=== PATIENT | female | born 1995 | race Caucasian/White ===

== ENCOUNTER 2021-12-26 16:54 | Inpatient (IN) | payer BC ==
[2021-12-26] MEDS: miSOPROStoL 25 MCG TAB VAGINAL PRN ×3 (17:46→23:45)
[2021-12-26] MEDS ORDERED: BUTORPHANOL 1 MG/ML 1 ML VIAL IV PRN (17:55)
[2021-12-26] MEDS ORDERED: ZOLPIDEM 10 MG TAB PO PRN (17:56)
--- NOTE | 2021-12-26 17:58 | P.HPOB ---
History of Present Illness H&P Date: 12/26/21 Chief Complaint: Here for Cytotec induction, unfavorable cervix This is a 26-year-old white female 1 para 0 EDC 12/22/2021 at 40-4/7 weeks' gestation. Patient was scheduled for induction tomorrow for postdates, however her cervix was quite unfavorable. After discussion we had elected to proceed with Cytotec induction tonight. Fetus is been active throughout the . Reactive NST in the office. Patient is having spontaneous cramping of mild intensity. Past medical history is essentially unremarkable. Past surgical history is negative. Current medications Zofran 4 mg as needed, vitamin daily, baby aspirin daily. ALLERGIES none known Family history cervical cancer in her aunt. Social history patient is , she has never been a smoker, she denies alcohol or drug use. history is significant for negative group B strep cultures, blood type O negative, rubella status immune. VDRL testing, hepatitis B surface antigen, urine culture, VDRL testing, Pap smear, gonorrhea and and chlamydia cultures all negative. One-hour Glucola elevated, 3 hour GTT within normal limits. On exam patient is 5 foot 4 inches, 238 pounds, blood pressure 130/84 and admission. Vital signs are stable and she is afebrile. General physical exam is within normal limits. Extremities reveal no edema. heart rate is consistent with reactive NST. Cervix is posterior, 60% effaced, moderate to firm, -2 station, 1 cm dilated, vertex presentation. Cytotec 25 MCG's is placed high in the vagina posterior to the cervix. Impression: 40-4/7 weeks intrauterine , here for induction of labor, all signs reassuring. Plan: Cytotec repeat at 2044 hrs., third dose to be determined. Analgesic options reviewed. Close maternal and surveillance. Clear liquids at this time, nothing by mouth after midnight. Begin Pitocin at 0600 hrs. tomorrow morning and less active labor ensues. All questions answered. Review of Systems Constitutional: Reports as per [facility] Medications and Allergies Home Medications Medication Instructions Recorded Confirmed Type Aspirin [[place]az[place]] 81 mg PO DAILY 12/26/21 12/26/21 History Ondansetron [Zofran ODT] 1 tab PO DAILY PRN 12/26/21 12/26/21 History Pnv,Calcium 72/Iron/Folic Acid 1 tab PO DAILY 12/26/21 12/26/21 History [ Plus Tablet] Allergies Allergy/AdvReac Type Severity Reaction Status Date / Time No Known Allergies Allergy Verified 12/26/21 17:08 Exam Intake and Output 12/26/21 12/26/21 12/26/21 06:59 14:59 22:59 Other: Weight 107.955 kg See dictation under HPI please Assessment and Plan Assessment: 40-4/7 weeks intrauterine , here for induction of labor with unfavorable cervix, Cytotec first dose placed. All signs reassuring. Plan: Repeat Cytotec in 3 hours. Close maternal and surveillance. Analgesic options reviewed. Clear liquids at this time, nothing by mouth after midnight. Pitocin at 0600 hrs. unless active labor tonight. Time with Patient: Less than 30
[2021-12-26 18:40] LABS: Basophils % (A) 0 %; Eosinophils # (A) 0.1 k/uL (0-0.7); Eosinophils % (A) 1 %; HCT 40.6 % (34.0-46.0); HGB 13.3 gm/dL (11.4-16.0); Lymphocytes % (A) 19 %; MCH 28.4 pg (25.0-35.0); MCHC 32.7 g/dL (31.0-37.0); MCV 86.8 fL (80.0-100.0); Mean Platelet Volume 12.8; Monocytes # (A) 0.6 k/uL (0-1.0); Monocytes % (A) 6 %; Neutrophils % (A) 73 %; Platelet Count 164 k/uL (150-450); RBC 4.67 m/uL (3.80-5.40); RDW 14.3 % (11.5-15.5); WBC 10.9 k/uL (3.8-10.6)
[2021-12-26 19:30] LABS: Large Platelets Present
[2021-12-26] MEDS ORDERED: ZOLPIDEM 5 MG TAB PO PRN (20:52)
[2021-12-26 22:12] LABS: Uric Acid 5.5 mg/dL (3.7-7.4)
[2021-12-27] MEDS ORDERED: OXYTOCIN 10 UNIT/ML 1 ML VIAL IM PRN (05:02)
[2021-12-27] MEDS ORDERED: METHYLERGONOVINE 0.2 MG/ML 1 ML AMP IM PRN (05:02)
[2021-12-27] MEDS ORDERED: LIDOCAINE 1% (PF) 10 MG/ML (30 ML SDV) SQ PRN (05:02)
[2021-12-27] MEDS ORDERED: CARBOPROST TROMETHAMINE 250 MCG/ML 1 ML AMP IM PRN (05:02)
[2021-12-27] MEDS ORDERED: TERBUTALINE 1 MG/ML VIAL SQ PRN (05:02)
[2021-12-27] MEDS ORDERED: OXYTOCIN 30 UNITS/500 ML NS 30 UNIT in SALINE 1 500ML.BAG IV SCH (05:15)
[2021-12-27] MEDS: LACTATED RINGERS 1,000 ML IV SCH ×4 (05:47→22:09)
[2021-12-27] MEDS ORDERED: ONDANSETRON 4 MG/2 ML VIAL IVP PRN ×2 (07:46→13:14)
[2021-12-27] MEDS ORDERED: OXYTOCIN 30 UNITS/500 ML NS BAG IV ONE (12:10)
[2021-12-27] MEDS ORDERED: KETOROLAC 15 MG/ML 1 ML VIAL ONE (12:10)
[2021-12-27] MEDS ORDERED: ONDANSETRON 4 MG/2 ML VIAL ONE (12:10)
[2021-12-27] MEDS ORDERED: MORPHINE SULFATE (PF) 0.3 MG/0.3 ML SYR ONE (12:10)
[2021-12-27] MEDS ORDERED: ROPIVACAINE 100 MG, fentaNYL (PF). 200 MCG in SODIUM CHLORIDE 0.9% 76 ML EPIDURAL ONE (12:51)
[2021-12-27] MEDS ORDERED: diphenhydrAMINE 50 MG CAP PO PRN (13:14)
[2021-12-27] MEDS ORDERED: LANOLIN CREAM 5 GM TUBE TOPICAL PRN (13:14)
[2021-12-27] MEDS ORDERED: METOCLOPRAMIDE 5 MG/ML 2 ML VIAL IVP PRN (13:14)
[2021-12-27] MEDS ORDERED: SIMETHICONE 80 MG CHEWABLE PO PRN (13:14)
[2021-12-27] MEDS ORDERED: NALOXONE 0.4 MG/ML 1 ML VIAL IV PRN (13:14)
[2021-12-27] MEDS ORDERED: diphenhydrAMINE 50 MG/ML 1 ML VIAL IVP PRN ×2 (13:14)
[2021-12-27] MEDS ORDERED: diphenhydrAMINE 25 MG CAP PO PRN (13:14)
[2021-12-27] MEDS ORDERED: ZOLPIDEM 5 MG TAB PO PRN (13:14)
--- NOTE | 2021-12-27 13:14 | P.OP ---
Date of Procedure: 12/27/21 Preoperative Diagnosis: 40-5/7 weeks, arrest of dilatation, nonreassuring heart tones. Postoperative Diagnosis: Same, normal-appearing tubes and ovaries, liveborn male , 7 lbs. 15 oz., 3600 g, ROT Procedure(s) Performed: Primary low transverse section Anesthesia: epidural Surgeon: Nida Cervantes Manager Investment #1: Stefany Poole Estimated Blood Loss (ml): 400 IV fluids (ml): 600 Urine output (ml): 400 Pathology: other (Placenta) Operative Findings: Liveborn male infant, right occiput transverse position. Normal-appearing tubes and ovaries bilaterally. Description of Procedure: Patient presented last night for Cytotec induction. She received 3 doses and did well. Artificial amniorrhexis this morning revealed clear. Oxytocin was started and titrated per hospital protocol. Patient be 5 cm dilated and had arrest of dilation for proximal 2 hours. In addition, nonreassuring heart tones were present. The decision was made to proceed with primary low transverse section. Antibiotics are given. Bicitra given. Patient was brought back to the operating room. Vaginal prep performed. Abdomen prepped and draped in usual sterile fashion. Castro catheter placed. The appropriate timeout is performed to assure proper patient and procedural identification. The analgesia is checked and noted to be adequate. A low transverse skin incision is made in this is carried down through the subcutaneous tissue which is approximately 5 cm deep. Fascia is isolated, scored, extended bilaterally with curved Ulloa scissors. Peritoneum is next identified and incised, there is no bowel or bladd er involvement. At all times the bladder is Well from the operative field to avoid bladder and/or ureteral injury. A low transverse uterine incision is made in this is extended with blunt dissection. Infant's head is delivered in the right occiput transverse position. Patient is officially delivered of a liveborn male infant at 1227 hrs. Umbilical cord is doubly clamped and ligated, he is handed to waiting nurses for evaluation where scores of 45 and 8 at one and 5 and 10 minutes respectively are given. Cord blood is sent to the lab for Rh- status. The placenta is delivered manually, it is inspected and noted to be intact with trivascular cord at 1228 hrs. Uterus is then externalized and massaged. It is swept clean with a sterile sponge to avoid any retained products of conception. Bilateral tubes and ovaries appear normal to inspection. Uterus is closed in a two-step fashion, first layer running locking, second layer imbricated. Excellent hemostasis is noted. The abdomen is suctioned with U to the uterus and the uterus is gently placed back into the abdominal cavity. Bilateral gutters are inspected and cleaned. Hemostasis again is excellent. Peritoneum is allowed to close by secondary intention. Fascia is closed in a running locking stitch of 0 Vicryl with over ligation in the midline. Subcutaneous tissue is irrigated, clean and dry. It is reapproximated with 3-0 Vicryl in a running stitch. 4-0 undyed Monocryl is used for final skin closure. Steri- Strips and Mastisol are applied to the wound. All sponge needle and enhancement counts are correct. Castro is noted to be draining clear urine. Infant weighs 7 lbs. 15 oz. or 3600 g. Patient is requesting circumcision for her son.
[2021-12-27] MEDS: ACETAMINOPHEN TAB 500 MG TAB PO SCH ×2 (13:53→20:25)
[2021-12-27] MEDS: IBUPROFEN 600 MG TAB PO SCH (18:10)
[2021-12-27] MEDS ORDERED: HYDROmorphone 1 MG/ML 1 ML SYRINGE IVP PRN (18:32)
[2021-12-27] MEDS: SENNOSIDES-DOCUSATE SODIUM 1 EACH TAB PO SCH (20:26)
[2021-12-27 21:59] VITALS: RESP 16
[2021-12-28] MEDS: IBUPROFEN 600 MG TAB PO SCH ×4 (00:25→19:51)
[2021-12-28] MEDS ORDERED: Rhogam IMMUNE GLOBULIN 1,500 UNIT/1 ML IM ONE (05:33)
[2021-12-28] MEDS: ACETAMINOPHEN TAB 500 MG TAB PO SCH ×3 (05:37→23:39)
--- NOTE | 2021-12-28 07:03 | P.PN ---
Subjective Progress Note Date: 12/28/21 Principal diagnosis: Doing well postoperative day #1 Slept well. Positive flatus. Urinating freely. Minimal pain. Objective - Vital Signs Vital signs: Vital Signs Temp 97.9 F 12/28/21 04:00 Pulse 76 12/28/21 04:00 Resp 16 12/28/21 04:00 BP 121/71 12/28/21 04:00 Pulse Ox 100 12/27/21 15:10 Intake & Output 12/27/21 12/28/21 12/28/21 18:59 06:59 18:59 Intake Total 2214.467 Output Total 1375 1600 Balance 839.467 -1600 Intake: IV 1800 Intake, IV Titration 14.467 Amount Oxytocin 30 Units/500 ml 14.467 Ns 30 unit In Saline 1 500ml.bag @ Per Protocol IV .Q0M [facility] Rx#:[id number] Blood Product 400 Output: Urine 650 1600 Uretheral (Castro) 800 Output, Quantitative 725 Blood Loss Other: Voiding Method Indwelling Catheter - Constitutional General appearance: Present: average body habitus, cooperative - EENT Eyes: Present: PERRLA ENT: Present: hearing grossly normal - Respiratory Respiratory: bilateral: CTA - Cardiovascular Rhythm: regular - Gastrointestinal Gastrointestinal Comment(s): Incision clean and dry, intact, Steri-Strips applied. Fundus firm, midline, symmetric, 18 week size General gastrointestinal: Present: normal bowel sounds - Integumentary Integumentary: Present: normal - Neurologic Neurologic: Present: CNII-XII intact - Musculoskeletal Musculoskeletal: Present: gait normal, strength equal bilaterally - Psychiatric Psychiatric: Present: A&O x's 3, appropriate affect, intact judgment & insight - Labs CBC & Chem 7: 12/26/21 17:30 Assessment and Plan Assessment: Doing well postoperative day #1 Plan: Continue postoperative care. Advanced diet and activity. Likely discharge home tomorrow. Circumcision now. Time with Patient: Less than 30
--- NOTE | 2021-12-28 07:46 | P.PN ---
Progress Note - Text Progress Note Date: 12/28/21 Ms. Whiteside is a 26 -year-old female had a history of under spinal analg esia with Astramorph 300 g for postop pain. Today patient is comfortable sitting in her bed. Today patient rated her pain level 4 out of 10 in severity. Denied any fever, drowsiness, confusion. Denied any weakness, tingling sensation in her lower extremities. Denied any bowel or bladder problems. Moving all extremities without any difficulty. Able to walk without any difficulties. Vitals: Hemodynamically stable Continue oral pain medication as per primary team.
[2021-12-28] MEDS: SENNOSIDES-DOCUSATE SODIUM 1 EACH TAB PO SCH ×2 (08:04→19:51)
[2021-12-28 08:40] LABS: Basophils % (A) 0 %; Eosinophils # (A) 0.1 k/uL (0-0.7); Eosinophils % (A) 1 %; HCT 34.4 % (34.0-46.0); HGB 11.5 gm/dL (11.4-16.0); Lymphocytes # (A) 1.6 k/uL (1.0-4.8); Lymphocytes % (A) 15 %; MCH 29.7 pg (25.0-35.0); MCHC 33.5 g/dL (31.0-37.0); MCV 88.9 fL (80.0-100.0); Mean Platelet Volume 12.6; Monocytes # (A) 0.4 k/uL (0-1.0); Monocytes % (A) 3 %; Neutrophils # (A) 8.1 k/uL (1.3-7.7); Neutrophils % (A) 80 %; Platelet Count 126 k/uL (150-450); RBC 3.88 m/uL (3.80-5.40); RDW 14.1 % (11.5-15.5); WBC 10.2 k/uL (3.8-10.6)
[2021-12-28 14:02] LABS: Large Platelets Present; RBC Morphology Normal
[2021-12-29] MEDS: IBUPROFEN 600 MG TAB PO SCH ×3 (03:42→11:02)
[2021-12-29] MEDS: ACETAMINOPHEN TAB 500 MG TAB PO SCH ×2 (04:02→05:59)
[2021-12-29 08:52] VITALS: BP 143/85; PULSE 86; TEMP 98.3
[2021-12-29] MEDS: SENNOSIDES-DOCUSATE SODIUM 1 EACH TAB PO SCH (08:53)
== END 2021-12-29 11:55 | disposition home or self-care (01) | DRG 788 ==
LOC: 4FBP 16:54
PROVIDERS: ADMIT Obstetrics & Gynecology; ATTEND Obstetrics & Gynecology
PROC: 10D00Z1 Extraction of Products of Conception, Low, Open Approach (ICD-10-PCS; principal; 2021-12-26)
PROC: 4A0HXCZ Measurement of Products of Conception, Cardiac Rate, External Approach (ICD-10-PCS; 2021-12-26)
PROC: 3E0DXGC Introduction of Other Therapeutic Substance into Mouth and Pharynx, External Approach (ICD-10-PCS; 2021-12-26)
PROC: 3E033VJ Introduction of Other Hormone into Peripheral Vein, Percutaneous Approach (ICD-10-PCS; 2021-12-26)
PROC: 10907ZC Drainage of Amniotic Fluid, Therapeutic from Products of Conception, Via Natural or Artificial Opening (ICD-10-PCS; 2021-12-26)
DX: O76 Abnormality in fetal heart rate and rhythm complicating labor and delivery (principal); O34.43 Maternal care for other abnormalities of cervix, third trimester; O62.0 Primary inadequate contractions; O26.893 Other specified pregnancy related conditions, third trimester; Z67.41 Type O blood, Rh negative; O48.0 Post-term pregnancy; Z3A.40 40 weeks gestation of pregnancy; Z37.0 Single live birth; Z79.82 Long term (current) use of aspirin; Z80.49 Family history of malignant neoplasm of other genital organs
CPT/HCPCS: 84450; 84460; 84550; 85025; 85461; 85730; 86850; 86900; 86901; 88307

== ENCOUNTER 2022-12-31 15:59 | Inpatient (IN) | payer BC ==
[2022-12-31] MEDS ORDERED: SODIUM CHLORIDE 0.9% 1,000 ML IV ONE ×2 (16:14→17:28)
--- NOTE | 2022-12-31 16:15 | ED ---
General Adult HPI - General Chief complaint: Nausea/Vomiting/Diarrhea Stated complaint: Vomiting,7wks Time Seen by Provider: 12/31/22 16:02 Source: patient, EMS, RN notes reviewed, old records reviewed Mode of arrival: EMS Limitations: no limitations - History of Present Illness Initial comments: 27-year-old female presenting for evaluation of vomiting. Patient has been vomiting for about one week and this has escalated over the past 24-48 hours. She is currently approximately 7 weeks . She had a intrauterine confirmed at the car dumper operator helper's office or if she's been taking multiple medications including B6, Phenergan, Zofran and Benadryl. She's been trying multiple strategies with Gatorade and eating crackers. She denies abdominal pain. Additionally she states she's had upper respiratory symptoms with nasal congestion and cough And wheezing. This is also escalated over the past one week. She had been prescribed Singulair and loratadine as an outpatient as well as albuterol. She does have a known history of asthma. - Related Data Home Medications Medication Instructions Recorded Confirmed Vit No.180/Iron/Folic 1 tab PO DAILY 12/26/21 12/31/22 [ Plus Tablet] Albuterol Sulfate [Albuterol 2 puff PO RT-Q4H PRN 12/31/22 12/31/22 Sulfate Hfa] Aspirin 81 mg PO DAILY 12/31/22 12/31/22 Loratadine 10 mg PO DAILY 12/31/22 12/31/22 Montelukast Sodium [Singulair] 10 mg PO DAILY 12/31/22 12/31/22 Ondansetron [Zofran] 4 mg PO Q4H PRN 12/31/22 12/31/22 Promethazine Suppository 25 mg RECTAL Q8H PRN 12/31/22 12/31/22 [Phenergan] Sertraline [Zoloft] 50 mg PO DAILY 12/31/22 12/31/22 Allergies Allergy/AdvReac Type Severity Reaction Status Date / Time No Known Allergies Allergy Verified 12/31/22 17:25 Review of Systems ROS Statement: Those systems with pertinent positive or pertinent negative responses have been documented in the HPI. ROS Other: All systems not noted in ROS Statement are negative. Past Medical History Past Medical History: No Reported History History of Any Multi-Drug Resistant Organisms: None Reported Past Surgical History: No Surgical Hx Reported Past Anesthesia/Blood Transfusion Reactions: No Reported Reaction Past Psychological History: No Psychological Hx Reported Smoking Status: Never smoker Past Alcohol Use History: None Reported Past Drug Use History: None Reported - Past Family History Father Family Medical History: No Reported History General Exam Limitations: no limitations General appearance: alert, in distress (Mild respiratory distress) Eye exam: Present: normal appearance, PERRL ENT exam: Present: mucous membranes dry Neck exam: Present: normal inspection. Absent: tenderness, meningismus Respiratory exam: Present: respiratory distress, wheezes, decreased breath sounds Cardiovascular Exam: Present: normal rhythm, tachycardia GI/Abdominal exam: Absent: distended Extremities exam: Present: normal capillary refill. Absent: calf tenderness Neurological exam: Present: alert, oriented X3, CN II-XII intact. Absent: motor sensory deficit Skin exam: Present: warm, dry, intact, normal color Course Vital Signs 12/31/22 12/31/22 12/31/22 16:08 16:30 16:47 Temperature Pulse Rate 108 H 106 H 103 H Respiratory 20 Rate Blood Pressure 119/70 O2 Sat by Pulse 98 Oximetry 12/31/22 12/31/22 12/31/22 17:24 17:43 17:53 Temperature 99.7 F H Pulse Rate 110 H 110 H 115 H Respiratory 20 Rate Blood Pressure 141/83 O2 Sat by Pulse 100 Oximetry - Reevaluation(s) Reevaluation #1: 12/31/22 19:20 EKG Findings - EKG Comments: EKG Findings:: EKG: Sinus tachycardia limited assessment due to tremor artifact, no ST segment elevation, ventricular rate of 121, MA interval 142, QRS duration 78, QTC 410 - EKG Results: EKG: interpreted by ERMD Medical Decision Making - Medical Decision Making Was pt. sent in by a medical professional or institution (, PA, YOUTH DEVELOPMENT SPECIALIST, urgent care, hospital, or [place] health care facility...) When possible be specific @ -Sent in by primary care physician Did you speak to anyone other than the patient for history (EMS, parent, family, police, friend...)? What history was obtained from this source @ -History is obtained from the patient's father and car dumper operator helper Did you review nursing and triage notes (agree or disagree)? Why? @ -I reviewed and agree with nursing and triage notes Were old charts reviewed (outside hosp., previous admission, EMS record, old EKG, old radiological studies, urgent care reports/EKG's, [place] health care facility records)? Report findings @ -No old charts were reviewed Differential Diagnosis (chest pain, altered mental status, abdominal pain women, abdominal pain men, vaginal bleeding, weakness, fever, dyspnea, syncope, headache, dizziness, GI bleed, back pain, seizure, CVA, palpatations, mental health, musculoskeletal)? @ -Differential Dyspnea: arrhythmia, tamponade, asthma, COPD, pulmonary embolism, pneumonia, pneumothorax, pulmonary effusion, anaphylaxis, diabetic ketoacidosis, flailed chest, pulmonary contusion, diaphragmatic rupture, anemia, neuromuscular, this is not meant to be an all-inclusive list. EKG interpreted by me (3pts min.). @ -As above X-rays interpreted by me (1pt min.). @ -Chest x-ray negative for focal pneumonia, no acute findings, this was reviewed by myself CT interpreted by me (1pt min.). @ -None done U/S interpreted by me (1pt. min.). @ -Ultrasound of the fetus is pending What testing was considered but not performed or refused? (CT, X-rays, U/S, labs)? Why? @ -None What meds were considered but not given or refused? Why? @ -Initially steroids were held due to the increased risk of abnormality in the first trimester. After discussion with patient's father who is a physician, the patient herself, the car dumper operator helper Dr. Cervantes and the tin dipper Dr. Huynh it was agreed upon that steroids would be of benefit and worth any potential risk. Did you discuss the management of the patient with other professionals (professionals i.e. DrCory, PA, YOUTH DEVELOPMENT SPECIALIST, lab, RT, psych nurse, social worker masters, diamond setter, te acher, campus security officer, rn case management)? Give summary @ -Case discussed with Dr. Cervantes who is patient's car dumper operator helper, throughout the care of this patient. Case discussed with the tin dipper Dr. Huynh Was smoking cessation discussed for >3mins.? @ -No Was critical care preformed (if so, how long)? @ -No Were there social determinants of health that impacted care today? How? (Homeles sness, low income, unemployed, alcoholism, drug addiction, transportation, low edu. Level, literacy, decrease access to med. care, care home, rehab)? @ -No Was there de-escalation of care discussed even if they declined (Discuss DNR or withdrawal of care, Hospice)? DNR status @ -No What co-morbidities impacted this encounter? (DM, HTN, Smoking, COPD, CAD, Cancer, CVA, ARF, Chemo, Hep., AIDS, mental health diagnosis, sleep apnea, morbid obesity)? @ -Asthma Was patient admitted / discharged? Hospital course, mention meds given and route, prescriptions, significant lab abnormalities, going to OR and other pertinent info. @ -27-year-old female approximately 7 weeks presenting with chief complaint of vomiting and hyperemesis gravidarum over the past one week and a progressive dyspnea and cough also over the past one week. Patient is in moderate respiratory distress with tachypnea. She is able to maintain her saturations throughout her stay in the emergency department. She has diminished breath sounds and wheezing bilaterally. In addition to vomiting associated with her the she is also expressing and asthma exacerbation. Chest x- ray is performed which is negative for acute cardiopulmonary findings. Her laboratory testing is essentially unremarkable including CBC, CMP, urinalysis and viral panel. She will benefit from continued treatment of nausea vomiting and dehydration as well as treatment of asthma exacerbation. She's placed on nebulized albuterol, nebulized budesonide and IV steroids. She'll be admitted to Dr. Cervantes with Dr. Huynh on consult. Undiagnosed new problem with uncertain prognosis? @ -No Drug Therapy requiring intensive monitoring for toxicity (Heparin, Nitro, Insulin, Cardizem)? @ -No Were any procedures done? @ -No Diagnosis/symptom? @ -Asthma exacerbation, dehydration, hyperemesis gravidarum Acute, or Chronic, or Acute on Chronic? @ -acute Uncomplicated (without systemic symptoms) or Complicated (systemic symptoms)? @ -Complicated Side effects of treatment? @ -No Exacerbation, Progression, or Severe Exacerbation? @ -Asthma exacerbation - Lab Data Result diagrams: 12/31/22 16:20 12/31/22 16:20 Lab Results 12/31/22 12/31/22 12/31/22 Range/Units 16:20 16:20 16:20 WBC 11.1 H (3.8-10.6) k/uL RBC 5.26 (3.80-5.40) m/uL Hgb 15.2 (11.4-16.0) gm/dL Hct 43.8 (34.0-46.0) % MCV 83.3 (80.0-100.0) fL MCH 28.8 (25.0-35.0) pg MCHC 34.6 (31.0-37.0) g/dL RDW 13.0 (11.5-15.5) % Plt Count 197 (150-450) k/uL MPV 10.6 Neutrophils % 71 % Lymphocytes % 19 % Monocytes % 6 % Eosinophils % 2 % Basophils % 0 % Neutrophils # 7.8 H (1.3-7.7) k/uL Lymphocytes # 2.1 (1.0-4.8) k/uL Monocytes # 0.6 (0-1.0) k/uL Eosinophils # 0.2 (0-0.7) k/uL Basophils # 0.0 (0-0.2) k/uL Sodium 139 (137-145) mmol/L Potassium 4.2 (3.5-5.1) mmol/L Chloride 103 (98-107) mmol/L Carbon Dioxide 24 (22-30) mmol/L Anion Gap 12 mmol/L BUN 11 (7-17) mg/dL Creatinine 0.69 (0.52-1.04) mg/dL Est GFR (CKD-EPI)AfAm >90 (>60 ml/min/1.73 sqM) Est GFR (CKD-EPI)NonAf >90 (>60 ml/min/1.73 sqM) Glucose 96 (74-99) mg/dL Plasma Lactic Acid Terrell 1.5 (0.7-2.0) mmol/L Calcium 9.7 (8.4-10.2) mg/dL Magnesium 1.8 (1.6-2.3) mg/dL Total Bilirubin 0.4 (0.2-1.3) mg/dL AST 16 (14-36) U/L ALT 18 (4-34) U/L Alkaline Phosphatase 93 (38-126) U/L Total Protein 7.8 (6.3-8.2) g/dL Albumin 4.8 (3.5-5.0) g/dL Urine Color Urine Appearance (Clear) Urine pH (5.0-8.0) Ur Specific [place] (1.001-1.035) Urine Protein (Negative) Urine Glucose (UA) (Negative) Urine Ketones (Negative) Urine Blood (Negative) Urine Nitrite (Negative) Urine Bilirubin (Negative) Urine Urobilinogen (<2.0) mg/dL Ur Leukocyte Esterase (Negative) Urine RBC (0-5) /hpf Urine WBC (0-5) /hpf Ur Squamous Epith Cells (0-4) /hpf Urine Bacteria (None) /hpf Urine Mucus (None) /hpf Influenza Type A (PCR) (Not Detectd) Influenza Type B (PCR) (Not Detectd) RSV (PCR) (Not Detectd) SARS-CoV-2 (PCR) (Not Detectd) 12/31/22 12/31/22 Range/Units 17:05 17:30 WBC (3.8-10.6) k/uL RBC (3.80-5.40) m/uL Hgb (11.4-16.0) gm/dL Hct (34.0-46.0) % MCV (80.0-100.0) fL MCH (25.0-35.0) pg MCHC (31.0-37.0) g/dL RDW (11.5-15.5) % Plt Count (150-450) k/uL MPV Neutrophils % % Lymphocytes % % Monocytes % % Eosinophils % % Basophils % % Neutrophils # (1.3-7.7) k/uL Lymphocytes # (1.0-4.8) k/uL Monocytes # (0-1.0) k/uL Eosinophils # (0-0.7) k/uL Basophils # (0-0.2) k/uL Sodium (137-145) mmol/L Potassium (3.5-5.1) mmol/L Chloride (98-107) mmol/L Carbon Dioxide (22-30) mmol/L Anion Gap mmol/L BUN (7-17) mg/dL Creatinine (0.52-1.04) mg/dL Est GFR (CKD-EPI)AfAm (>60 ml/min/1.73 sqM) Est GFR (CKD-EPI)NonAf (>60 ml/min/1.73 sqM) Glucose (74-99) mg/dL Plasma Lactic Acid Terrell (0.7-2.0) mmol/L Calcium (8.4-10.2) mg/dL Magnesium (1.6-2.3) mg/dL Total Bilirubin (0.2-1.3) mg/dL AST (14-36) U/L ALT (4-34) U/L Alkaline Phosphatase (38-126) U/L Total Protein (6.3-8.2) g/dL Albumin (3.5-5.0) g/dL Urine Color Yellow Urine Appearance Clear (Clear) Urine pH 6.0 (5.0-8.0) Ur Specific [place] 1.037 H (1.001-1.035) Urine Protein 1+ H (Negative) Urine Glucose (UA) Negative (Negative) Urine Ketones Negative (Negative) Urine Blood Trace H (Negative) Urine Nitrite Negative (Negative) Urine Bilirubin Negative (Negative) Urine Urobilinogen <2.0 (<2.0) mg/dL Ur Leukocyte Esterase Negative (Negative) Urine RBC 6 H (0-5) /hpf Urine WBC 5 (0-5) /hpf Ur Squamous Epith Cells 6 H (0-4) /hpf Urine Bacteria Occasional H (None) /hpf Urine Mucus Few H (None) /hpf Influenza Type A (PCR) Not Detected (Not Detectd) Influenza Type B (PCR) Not Detected (Not Detectd) RSV (PCR) Not Detected (Not Detectd) SARS-CoV-2 (PCR) Not Detected (Not Detectd) Disposition Clinical Impression: Dehydration, Asthma exacerbation, Hyperemesis gravidarum Disposition: ADMITTED IP TO THIS [facility] Condition: Stable Is patient prescribed a controlled substance at d/c from ED?: No Referrals: Diego Bhatti MD [Primary Care Provider] - 1-2 days Time of Disposition: 19:29
[2022-12-31] MEDS ORDERED: ALBUTEROL NEBULIZED 2.5 MG/3 ML INHALATION STA ×2 (16:18→17:34)
[2022-12-31] MEDS ORDERED: methylPREDNISolone 4 MG TAB PO STA (16:21)
[2022-12-31 16:51] LABS: Potassium 4.2 mmol/L (3.5-5.1)
[2022-12-31 16:52] LABS: ALT 18 U/L (4-34); AST 16 U/L (14-36); African American GFR (CKD) >90 (>60 ml/min/1.73 sqM); Albumin 4.8 g/dL (3.5-5.0); Alkaline Phosphatase 93 U/L (38-126); Anion Gap 12 mmol/L; Blood Urea Nitrogen 11 mg/dL (7-17); Calcium 9.7 mg/dL (8.4-10.2); Carbon Dioxide 24 mmol/L (22-30); Chloride 103 mmol/L (98-107); Glucose 96 mg/dL (74-99); Magnesium 1.8 mg/dL (1.6-2.3); Non-African American GFR(CKD) >90 (>60 ml/min/1.73 sqM); Sodium 139 mmol/L (137-145); Total Bilirubin 0.4 mg/dL (0.2-1.3); Total Protein 7.8 g/dL (6.3-8.2)
[2022-12-31 17:07] LABS: Basophils % (A) 0 %; Eosinophils # (A) 0.2 k/uL (0-0.7); Eosinophils % (A) 2 %; HCT 43.8 % (34.0-46.0); HGB 15.2 gm/dL (11.4-16.0); Lymphocytes # (A) 2.1 k/uL (1.0-4.8); Lymphocytes % (A) 19 %; MCH 28.8 pg (25.0-35.0); MCHC 34.6 g/dL (31.0-37.0); MCV 83.3 fL (80.0-100.0); Mean Platelet Volume 10.6; Monocytes # (A) 0.6 k/uL (0-1.0); Monocytes % (A) 6 %; Neutrophils # (A) 7.8 k/uL (1.3-7.7); Neutrophils % (A) 71 %; Platelet Count 197 k/uL (150-450); RBC 5.26 m/uL (3.80-5.40); WBC 11.1 k/uL (3.8-10.6)
[2022-12-31 18:01] LABS: Appearance,Urine Clear (Clear); Bacteria,Urine Occasional /hpf; Bilirubin,Urine Negative (Negative); Blood,Urine Trace (Negative); Color,Urine Yellow; Glucose,Urine (UA) Negative (Negative); Ketones,Urine Negative (Negative); Leukocyte Esterase,Urine Negative (Negative); Mucus,Urine Few /hpf; Nitrite,Urine Negative (Negative); Protein,Urine 1+ (Negative); RBC,Urine 6 /hpf (0-5); Specific Gravity,Urine 1.037 (1.001-1.035); Squamous Epithelial Cell,Urine 6 /hpf (0-4); Urobilinogen,Urine <2.0 mg/dL (<2.0); WBC,Urine 5 /hpf (0-5)
[2022-12-31] MEDS ORDERED: BUDESONIDE 0.5 MG/2 ML NEBU INHALATION STA (18:21)
--- NOTE | 2022-12-31 19:05 | XR ---
EXAMINATION TYPE: XR chest 2V DATE OF EXAM: 12/31/2022 COMPARISON: NONE HISTORY: Nausea and vomiting TECHNIQUE: 2 views FINDINGS: Heart and mediastinum are normal. Lungs are clear. There is normal. Bony thorax is intact. IMPRESSION: Normal chest.
[2022-12-31] MEDS ORDERED: methylPREDNISolone SOD SUCCI 40 MG/ML 1 ML VIAL IV STA (19:16)
[2022-12-31] MEDS ORDERED: NALOXONE 0.4 MG/ML 1 ML VIAL IV PRN (19:19)
[2022-12-31] MEDS ORDERED: ACETAMINOPHEN TAB 325 MG TAB PO PRN (19:19)
[2022-12-31] MEDS: ALBUTEROL NEBULIZED 2.5 MG/3 ML INHALATION SCH (19:38)
--- NOTE | 2022-12-31 20:32 | US ---
EXAMINATION TYPE: Transabdominal DATE OF EXAM: 12/31/2022 8:17 PM COMPARISON: NONE CLINICAL HISTORY: vomiting/early . EXAM PERFORMED: Transvaginal (TV) and Transabdominal (TA) EXAM MEASUREMENTS: GESTATIONAL AGE / DATING Physician Established: (7 weeks/0 days) EDC: 08/19/2023 Dates by LMP: LMP unknown Dates by First Scan: (7 weeks/0 days) EDC: 08/19/2023 Dates by Current Scan for: (7 weeks/0 days) EDC: 08/19/2023 MATERNAL ANATOMY Uterus: wnl Right Ovary: wnl Left Ovary: corpus luteal cyst Post CDS / Adnexa: wnl Presence of free fluid: No Presence of corpus luteal cyst: 1.4 x 0.8 x 1.1cm Presence of subchorionic bleed: No GESTATION / SURVEY CRL: 9.1mm (7 weeks/0 days) MSD: 2.7cm (8 weeks/0 days) Yolk Sac (normal less than 6mm): 4.0mm Heart Rate: 143 bpm Rhythm: Normal IUP: Viable IUP Date of LMP: Unknown Beta HcG (if available): Unknown IMPRESSION: The ultrasound gestational age is 7 weeks according to the crown-rump length. No evidence of ectopic .
[2022-12-31] MEDS: ALBUTEROL NEBULIZED 2.5 MG/3 ML INHALATION PRN (23:04)
[2022-12-31] MEDS: SODIUM CHLORIDE 0.9% 1,000 ML IV SCH (23:12)
[2022-12-31] MEDS: MONTELUKAST 10 MG TAB PO SCH (23:23)
[2022-12-31] MEDS: methylPREDNISolone SOD SUCCI 40 MG/ML 1 ML VIAL IV SCH (23:25)
[2023-01-01] MEDS ORDERED: diphenhydrAMINE 25 MG CAP PO STA ×2 (01:02→21:04)
--- NOTE | 2023-01-01 02:08 | P.CONS ---
History of Present Illness - Reason for Consult Consult date: 12/31/22 acute asthma exacerbation Requesting physician: Nida Cervantes - Chief Complaint SOB, coughing - History of Present Illness 27 year old female with history of induced asthma. patient is 7 weeks with her second child, she had an uneventful 2 years ago resulted in healthy baby who is almost 1 year old now. during that she was diagnosed with induced asthma without any severe episodes. today she is coming for worsening shortness of breath, she has been dealing with severe symptoms of hyperemesis gravidarum self managing with crackers, Vit B6, benadryl , phenergan. she denies any known sick contacts, however, she has been having URI symptoms for about a week now. shortness of breath progressive, now preventing her from even walking around the [place] without getting short of breath, she has been prescribed , albuterol inh irais, symbicort, singular, and benadryl to help improve her symptoms without much benefits she denies any fever, chills, body aches, changes in bowel or urinary habits. denies any chest pain or aabd pain, denies any hemoptysis or history of blood clots denies tobacco smoking, illicit drugs or alcohol Review of Systems Pertinent positives as noted in HPI. All other systems were reviewed and are negative Past Medical History Past Medical History: No Reported History History of Any Multi-Drug Resistant Organisms: None Reported Past Surgical History: Section Past Anesthesia/Blood Transfusion Reactions: No Reported Reaction Past Psychological History: No Psychological Hx Reported Smoking Status: Never smoker Past Alcohol Use History: None Reported Past Drug Use History: None Reported - Past Family History Father Family Medical History: No Reported History Medications and Allergies Home Medications Medication Instructions Recorded Confirmed Type Vit No.180/Iron/Folic 1 tab PO DAILY 12/26/21 12/31/22 History [ Plus Tablet] Albuterol Sulfate [Albuterol 2 puff PO RT-Q4H PRN 12/31/22 12/31/22 History Sulfate Hfa] Aspirin 81 mg PO DAILY 12/31/22 12/31/22 History Loratadine 10 mg PO DAILY 12/31/22 12/31/22 History Montelukast Sodium [Singulair] 10 mg PO DAILY 12/31/22 12/31/22 History Ondansetron [Zofran] 4 mg PO Q4H PRN 12/31/22 12/31/22 History Promethazine Suppository 25 mg RECTAL Q8H PRN 12/31/22 12/31/22 History [Phenergan] Sertraline [Zoloft] 50 mg PO DAILY 12/31/22 12/31/22 History Allergies Allergy/AdvReac Type Severity Reaction Status Date / Time No Known Allergies Allergy Verified 12/31/22 17:25 Physical Exam Vitals: Vital Signs Temp Pulse Pulse Resp BP BP Pulse Ox 12/31/22 23:30 98.9 F 123 H 22 136/68 97 12/31/22 23:17 132 H 12/31/22 23:05 132 H 12/31/22 22:10 97.8 F 122 H 26 H 127/94 96 12/31/22 20:16 98.1 F 130 H 22 146/92 98 12/31/22 20:04 125 H 22 100 12/31/22 19:59 136 H 12/31/22 19:39 122 H 12/31/22 19:10 99.8 F H 127 H 123/86 99 12/31/22 17:53 115 H 12/31/22 17:43 110 H 12/31/22 17:24 99.7 F H 110 H 20 141/83 100 12/31/22 16:47 103 H 12/31/22 16:30 106 H 12/31/22 16:08 108 H 20 119/70 98 Intake and Output 12/31/22 12/31/22 01/01/23 14:59 22:59 06:59 Other: # Voids 1 Weight 88.451 kg Constitutional: No acute distress, conversant able to finish full sentences, pleasant Eyes: Anicteric sclerae, moist conjunctiva, Pupils equal round reactive to light ENMT: NC/AT Oropharynx clear, no erythema, or exudates Neck: Supple, no masses, or JVD No carotid bruits No thyromegaly Lungs: diminished breath sounds throughout , expiratory wheezing noticed when listening to the neck , no stridors. Clear to percussion accessory muscle use Cardiovascular: Heart tachycardia No murmurs, gallops, or rubs No peripheral edema Abdominal: Soft Nontender, no guarding, rebound or rigidity Abdomen moving with respiration Normoactive bowel sounds No hepatomegaly, No splenomegaly No abdominal wall hernia noted Skin: Normal temperature, tone, texture, turgor Extremities: No digital cyanosis No clubbing Pedal pulses intact and symmetrical Radial pulses intact and symmetrical No calf tenderness Psychiatric: Alert and oriented to person, place and time Appropriate affect fair judgment Neuro Muscles Strength 5/5 in all 4 extremities Sensation to light touch grossly present throughout Cranial nerves II-XII grossly intact Lymphatics: no palpable cervical or supraclavicular lymph nodes Results CBC & Chem 7: 12/31/22 16:20 12/31/22 16:20 Labs: Abnormal Lab Results - Last 24 Hours (Table) 12/31/22 12/31/22 Range/Units 16:20 17:30 WBC 11.1 H (3.8-10.6) k/uL Neutrophils # 7.8 H (1.3-7.7) k/uL Ur Specific [place] 1.037 H (1.001-1.035) Urine Protein 1+ H (Negative) Urine Blood Trace H (Negative) Urine RBC 6 H (0-5) /hpf Ur Squamous Epith Cells 6 H (0-4) /hpf Urine Bacteria Occasional H (None) /hpf Urine Mucus Few H (None) /hpf Assessment and Plan Assessment: 27 year old female presenting with repeated unconrolled nausea and vomiting, along with worsening upper respiratory symptoms I discussed the case with Dr Cervantes, who requested our hospitalist services to follow up on the patient acute asthma exacerbation CXR no acute finding acute respiratory viral panel , negative for covidd , influenza, and RSV increase albuterol inhalers to q2hr PRN shortness of breath continue with cardiac monitoring systemic parenteral steroids with solumedrol 40 mg q6hr montelukast 10 mg po daily supplemental oxygen as needed pulmonary consult benadryl 25 mg PO once color television console monitor supplemental oxygen as needed to keep oxygen sat >94% continuous pulse ox 7 weeks confirmed gestation age with vaginal US management per primary admitting team blood work reviewed , no anemia , no leukocytosis complete metabolic panel reviewed , renal function, liver enzymes and electrolytes all are unremarkable full code DVT PPX heparin sc tid 5000 units thank you for this consultation , we will continue to follow up
[2023-01-01] MEDS: ALBUTEROL NEBULIZED 2.5 MG/3 ML INHALATION PRN (03:47)
[2023-01-01] MEDS ORDERED: methylPREDNISolone SOD SUCCI 40 MG/ML 1 ML VIAL IV SCH (04:00)
[2023-01-01] MEDS: ONDANSETRON 4 MG/2 ML VIAL IVP PRN ×4 (04:31→23:07)
[2023-01-01] MEDS: methylPREDNISolone SOD SUCCI 40 MG/ML 1 ML VIAL IV SCH ×2 (06:07→13:16)
[2023-01-01] MEDS ORDERED: BUDESONIDE 0.5 MG/2 ML NEBU INHALATION SCH (08:00)
[2023-01-01] MEDS: SODIUM CHLORIDE 0.9% 1,000 ML IV SCH ×2 (08:24→17:46)
[2023-01-01] MEDS: ALBUTEROL NEBULIZED 2.5 MG/3 ML INHALATION SCH ×4 (08:51→20:30)
[2023-01-01] MEDS: HEPARIN SODIUM,PORCINE/PF 5,000 UNIT/0.5 ML SYRINGE SQ SCH ×3 (08:52→23:08)
--- NOTE | 2023-01-01 09:50 | P.HPOB ---
History of Present Illness H&P Date: 01/01/23 Chief Complaint: Recurrent emesis, lightheadedness, shortness of breath. This is a 27-year-old female 2 para 1001 at 7 weeks gestation who presented to the emergency room last night a history of hyperemesis over the past week. Patient had been managed as an outpatient with Zofran, Unisom and vitamin B6, Phenergan suppositories, and Benadryl. Her vomiting improved, nausea exacerbated. In addition, she has developed a cough, congestion, and wheezing over the past 48 hours. She was given a prescription for Singulair and loratadine by her yonathan, a family practitioner. Despite aggressive outpatient management, her symptoms increased and she presented to the emergency center for further evaluation. Past medical history is essentially negative with the exception of anxiety. Past surgical history section one year ago for nonreassuring heart tones, low transverse. Social history patient is , she has never been a smoker, she denies a lcohol or drug use, she is employed with a [employer]. Family history is essentially unremarkable. Current medications Unisom and vitamin B6 daily, Zofran 4 mg every 4-6 hours, Phenergan suppositories every 6 hours, 25 mg, Benadryl [id number] as needed, Zoloft 50 mg daily, wrist band bilaterally, Singulair and loratadine daily. ALLERGIES none known. On examination this is a pleasant white female, 5 foot 4 inches, 88 kg, BMI 33. Vital signs are stable, pulse 108, blood pressure 120s over 70s. The general physical exam is within normal limits. The chest is tight, with bilateral expiratory wheezing. Cardiac exam reveals sinus rhythm, tachycardia. Abdomen is soft and nontender. Breasts bilaterally are engorged consistent with breast- feeding. Extremities reveal no edema, good peripheral pulses. Labs include hemoglobin 15.2, WBCs 11.1, 7.8 neutrophils. EKG reveals sinus tachycardia with no other changes. Viral serologies completely negative. Metabolic panel is within normal limits with normal kidney and liver studies. Chest x-ray reveals no evidence of pneumonia, normal cardiac silhouette, no appreciable changes. Vaginal probe ultrasound reveals viable intrauterine of 7 weeks gestation with normal heartbeat. Impression: Seven-week intrauterine , hyperemesis gravidarum treated as outpatient with exacerbation. Respiratory distress, possibly due to acid reflux. Maternal anxiety. Plan: [facility] group following carefully, case discussed in great detail with Dr. Cheek last night as well as Dr. Stoll this morning. Also appreciate pulmonary team following, case discussed detail with Dr. Huynh. Will continue albuterol treatments, Pulmicort, and steroids as ordered. Patient is aware of the small risk of cleft palate with steroid use in the first trimester. Continue close medical management. Agree with addition of subcutaneous heparin, as well as antacid therapy. Will obtain labs with next phlebotomy. Review of Systems Constitutional: Reports as per HPI, Reports weakness Respiratory: Reports as per HPI, Reports cough, Reports dyspnea Past Medical History Past Medical History: No Reported History Additional Past Medical History / Comment(s): anxiety History of Any Multi-Drug Resistant Organisms: None Reported Past Surgical History: Section Past Anesthesia/Blood Transfusion Reactions: No Reported Reaction Past Psychological History: No Psychological Hx Reported Smoking Status: Never smoker Past Alcohol Use History: None Reported Past Drug Use History: None Reported - Past Family History Father Family Medical History: No Reported History Medications and Allergies Home Medications Medication Instructions Recorded Confirmed Type Vit No.180/Iron/Folic 1 tab PO DAILY 12/26/21 12/31/22 History [ Plus Tablet] Albuterol Sulfate [Albuterol 2 puff PO RT-Q4H PRN 12/31/22 12/31/22 History Sulfate Hfa] Aspirin 81 mg PO DAILY 12/31/22 12/31/22 History Loratadine 10 mg PO DAILY 12/31/22 12/31/22 History Montelukast Sodium [Singulair] 10 mg PO DAILY 12/31/22 12/31/22 History Ondansetron [Zofran] 4 mg PO Q4H PRN 12/31/22 12/31/22 History Promethazine Suppository 25 mg RECTAL Q8H PRN 12/31/22 12/31/22 History [Phenergan] Sertraline [Zoloft] 50 mg PO DAILY 12/31/22 12/31/22 History Allergies Allergy/AdvReac Type Severity Reaction Status Date / Time No Known Allergies Allergy Verified 12/31/22 17:25 Exam Vital Signs Temp Pulse Pulse Resp BP BP Pulse Ox 01/01/23 09:14 110 H 01/01/23 08:51 108 H 01/01/23 08:20 98.2 F 107 H 20 128/73 96 01/01/23 04:05 120 H 01/01/23 04:00 98.6 F 121 H 20 123/72 99 01/01/23 03:47 116 H 12/31/22 23:30 98.9 F 123 H 22 136/68 97 12/31/22 23:17 132 H 12/31/22 23:05 132 H 12/31/22 22:10 97.8 F 122 H 26 H 127/94 96 12/31/22 20:16 98.1 F 130 H 22 146/92 98 12/31/22 20:04 125 H 22 100 12/31/22 19:59 136 H 12/31/22 19:39 122 H 12/31/22 19:10 99.8 F H 127 H 123/86 99 12/31/22 17:53 115 H 12/31/22 17:43 110 H 12/31/22 17:24 99.7 F H 110 H 20 141/83 100 12/31/22 16:47 103 H 12/31/22 16:30 106 H 12/31/22 16:08 108 H 20 119/70 98 Intake and Output 12/31/22 01/01/23 01/01/23 22:59 06:59 14:59 Other: # Voids 1 Weight 88.451 kg See dictation under HPI please Results Result Diagrams: 12/31/22 16:20 12/31/22 16:20 Abnormal Lab Results - Last 24 Hours (Table) 12/31/22 12/31/22 Range/Units 16:20 17:30 WBC 11.1 H (3.8-10.6) k/uL Neutrophils # 7.8 H (1.3-7.7) k/uL Ur Specific [place] 1.037 H (1.001-1.035) Urine Protein 1+ H (Negative) Urine Blood Trace H (Negative) Urine RBC 6 H (0-5) /hpf Ur Squamous Epith Cells 6 H (0-4) /hpf Urine Bacteria Occasional H (None) /hpf Urine Mucus Few H (None) /hpf Assessment and Plan Assessment: 7 weeks gestational age, hyperemesis gravidarum, anxiety, significant dyspnea and moderate respiratory distress Plan: Agree with medical management as per [facility] physicians and pulmonary team. Continue close follow-up. We will add subcutaneous heparin as well as antacid therapy. I have had a thorough discussion with the patient and her regarding her clinical status, risks and benefits of current treatment, and our plan moving forward. All questions answered. Time with Patient: Greater than 30
[2023-01-01] MEDS: FAMOTIDINE 20 MG TAB PO SCH (09:58)
[2023-01-01] MEDS: CALCIUM CARBONATE 500 MG CHEWABLE PO PRN ×3 (09:58→19:55)
--- NOTE | 2023-01-01 11:19 | P.PN ---
Subjective Progress Note Date: 01/01/23 Patient is a 27-year-old female who is 7 weeks she is 2 para 2000. She has been struggling with hyperemesis at home as well as worsening shortness of breath and asthma symptoms. She is admitted to [facility] and we were consulted for management of possible asthma. Pulmonary critical care was also consulted. Patient seen and examined at bedside. Still feeling short of breath, but better than yesterday. Anxiety is slightly better than yesterday.She does report a significant feeling of acid reflux in the center of her chest. Father and significant other at bedside and updated, all questions answered. Vital signs reviewed General: nontoxic, no distress, appears at stated age Cardiovascular: S1S2 reg, no murmur, positive posterior tibial pulse bilateral, Lungs: Mild expiratory wheeze, no rhonchi, no rales , no accessory muscle use Abdominal: soft, nontender to palpation, no guarding, no appreciable organomegaly Ext: no gross muscle atrophy, no edema, no contractures Neuro: CN II-XI grossly intact, no focal neuro deficits Psych: Alert, oriented, appropriate affect Assessment: Acute exacerbation of asthma Acid reflux due to hyperemesis 7 week Anxiety Imaging: Chest x-ray from 12/31 reviewed by myself shows no acute process. Data Review: Labs reviewed from admission and white blood cell count was remarkable for 11.1, urinalysis remarkable for 1+ protein but negative ketones. Influenza A/B, RSV, and COVID-19 testing were negative. Plan: - Case discussed with Dr. Cervantes. Add tums and then Pepcid. Patient can be on Pepcid complete on discharge which is Category B. - Continue with solumedrol 40 mg IV - Await pulmonary recs - check BNP to rule out induced cardiomyopathy - Wells score of PE is 1.5 due to HF >100, which is low risk, this is likely due to and frequent nebulizer use. - albuterol and pulmoicort, Thank you for allowing us to participate in the care of this pleasant patient. Do not hesitate to contact us with questions. Someone can be reached from the [facility] hospitalist group all hours of the day at [phone] or via [employer] This dictation was prepared using Chomp voice recognition software. T sven every attempt is made to correct errors during during dictation some may still exist. Objective - Vital Signs Vital signs: Vital Signs Temp 98.2 F 01/01/23 08:20 Pulse 110 H 01/01/23 09:14 Resp 20 01/01/23 08:20 BP 128/73 01/01/23 08:20 Pulse Ox 96 01/01/23 08:20 FiO2 Intake & Output 12/31/22 01/01/23 01/01/23 18:59 06:59 18:59 Weight 88.451 kg 88.451 kg Other: # Voids 1 - Labs CBC & Chem 7: 12/31/22 16:20 12/31/22 16:20 Labs: Abnormal Lab Results - Last 24 Hours (Table) 12/31/22 12/31/22 Range/Units 16:20 17:30 WBC 11.1 H (3.8-10.6) k/uL Neutrophils # 7.8 H (1.3-7.7) k/uL Ur Specific [place] 1.037 H (1.001-1.035) Urine Protein 1+ H (Negative) Urine Blood Trace H (Negative) Urine RBC 6 H (0-5) /hpf Ur Squamous Epith Cells 6 H (0-4) /hpf Urine Bacteria Occasional H (None) /hpf Urine Mucus Few H (None) /hpf
[2023-01-01] MEDS: PROMETHAZINE 25 MG TAB PO PRN ×2 (13:17→19:55)
--- NOTE | 2023-01-01 15:29 | P.CNPUL ---
History of Present Illness Consult date: 01/01/23 Requesting physician: Nida Cervantes Reason for consult: dyspnea, cough, asthma Chief complaint: Shortness of breath. History of present illness: Pulmonary consult dated 01/01/2023. 27-year-old female who presented to the emergency department on December 31, complaining of nausea, vomiting, diarrhea. She apparently is 7 weeks . She's been having these GI issues for about a day or 2 prior to admission. They had been escalating. She apparently is been treated with vitamin B6, Phenergan, Zofran, and Benadryl. He's also been trying multiple strategies with Gatorade, and crackers. She apparently denied any abdominal pain. It addition, she apparently had upper respiratory tract symptoms with nasal congestion, cough, and wheezing. This is also escalated over the past week. She has no known history of lung disease, although she has a brother with severe asthma. I was asked to see her for this breathing issue. I spoke to the NETWORK SUPPORT ANALYST doctor, Dr. Nida Cervantes. I also interviewed and examined the patient, in room 367. White count 11.1, hemoglobin 15.2, hematocrit 43.8, and platelet count normal. Her comprehensive metabolic profile was completely normal. Her urine had 6 RBCs, 5 WBCs, and occasional bacteria. Her leukocyte esterase and nitrite test are both negative. She was tested for influenza, RSV, and coronavirus, and was negative for all 3. Her chest x-ray, was negative. Review of Systems REVIEW OF SYSTEMS: CONSTITUTIONAL: [Negative.] NEUROLOGIC: [ Negative.] HEENT: [ Negative.] CARDIAC: [Negative.] PULMONARY: Shortness of breath, chest tightness. GI: Nausea and vomiting. : [Negative.] RHEUMATOLOGIC: [ Negative.] IMMUNOLOGIC: [ Negative.] ENDOCRINE: [Negative. ] DERMATOLOGIC: [Negative.] Past Medical History Past Medical History: No Reported History Additional Past Medical History / Comment(s): anxiety History of Any Multi-Drug Resistant Organisms: None Reported Past Surgical History: Section Past Anesthesia/Blood Transfusion Reactions: No Reported Reaction Past Psychological History: No Psychological Hx Reported Smoking Status: Never smoker Past Alcohol Use History: None Reported Past Drug Use History: None Reported - Past Family History Father Family Medical History: No Reported History Medications and Allergies Home Medications Medication Instructions Recorded Confirmed Type Vit No.180/Iron/Folic 1 tab PO DAILY 12/26/21 12/31/22 History [ Plus Tablet] Albuterol Sulfate [Albuterol 2 puff PO RT-Q4H PRN 12/31/22 12/31/22 History Sulfate Hfa] Aspirin 81 mg PO DAILY 12/31/22 12/31/22 History Loratadine 10 mg PO DAILY 12/31/22 12/31/22 History Montelukast Sodium [Singulair] 10 mg PO DAILY 12/31/22 12/31/22 History Ondansetron [Zofran] 4 mg PO Q4H PRN 12/31/22 12/31/22 History Promethazine Suppository 25 mg RECTAL Q8H PRN 12/31/22 12/31/22 History [Phenergan] Sertraline [Zoloft] 50 mg PO DAILY 12/31/22 12/31/22 History Allergies Allergy/AdvReac Type Severity Reaction Status Date / Time No Known Allergies Allergy Verified 12/31/22 17:25 Physical Exam Osteopathic Statement: *. No significant issues noted on an osteopathic structural exam other than those noted in the History and Physical/Consult. Vitals: Vital Signs Temp Pulse Pulse Resp BP BP Pulse Ox 01/01/23 12:13 108 H 01/01/23 12:05 88 16 131/84 99 01/01/23 11:59 110 H 01/01/23 09:14 110 H 01/01/23 08:51 108 H 01/01/23 08:20 98.2 F 107 H 20 128/73 96 01/01/23 04:05 120 H 01/01/23 04:00 98.6 F 121 H 20 123/72 99 01/01/23 03:47 116 H 12/31/22 23:30 98.9 F 123 H 22 136/68 97 12/31/22 23:17 132 H 12/31/22 23:05 132 H 12/31/22 22:10 97.8 F 122 H 26 H 127/94 96 12/31/22 20:16 98.1 F 130 H 22 146/92 98 12/31/22 20:04 125 H 22 100 12/31/22 19:59 136 H 12/31/22 19:39 122 H 12/31/22 19:10 99.8 F H 127 H 123/86 99 12/31/22 17:53 115 H 12/31/22 17:43 110 H 12/31/22 17:24 99.7 F H 110 H 20 141/83 100 12/31/22 16:47 103 H 12/31/22 16:30 106 H 12/31/22 16:08 108 H 20 119/70 98 Intake and Output 01/01/23 01/01/23 01/01/23 06:59 14:59 22:59 Other: # Voids 1 No acute distress, oriented 3. No audible wheezing. HEENT examination is grossly unremarkable. Neck supple. Full range of motion. No adenopathy thyromegaly or neck vein distention. Cardiovascular examination reveals regular rhythm rate. S1-S2 normal. No S3 or S4. No discernible murmur noted. Heart rate 103 bpm. Lungs reveal scattered expiratory wheezes. Few scattered rhonchi. No crackles. Room air saturations 99%. Abdomen soft bowel sounds are heard. No masses or tenderness. Extremities are intact. No cyanosis clubbing or edema. Skin is without rash or lesion. Neurologic examination is brief but nonfocal. Results - Laboratory Findings CBC and BMP: 12/31/22 16:20 12/31/22 16:20 Abnormal lab findings: Abnormal Labs 12/31/22 12/31/22 16:20 17:30 WBC 11.1 H Neutrophils # 7.8 H Ur Specific [place] 1.037 H Urine Protein 1+ H Urine Blood Trace H Urine RBC 6 H Ur Squamous Epith Cells 6 H Urine Bacteria Occasional H Urine Mucus Few H - Diagnostic Findings Chest x-ray: image reviewed Assessment and Plan Assessment: Shortness of breath, likely related to new onset chronic bronchial asthma. Strong family history of asthma, and a brother. Intrauterine , 7 weeks. History of significant hyperemesis gravidarum. Anxiety. Plan: Plan dated 01/01/2023. The patient is seen, interviewed, and examined, and room 367. Labs, x-rays, medications are all reviewed. The patient's asthma regimen was maximized, giving her formoterol 20 g, mixed with 1 mg budesonide, twice a day, as well as nebulized albuterol. In addition, the patient's Solu-Medrol was increased to 60 mg every 6 hours, and she was given Singulair 10 mg at bedtime. We will continue to follow. Her chest x-ray was normal. I did speak to the NETWORK SUPPORT ANALYST doctor. I do plan to call the patient's father later today. Time with Patient: Greater than 30
[2023-01-01] MEDS: methylPREDNISolone SOD SUCCI 125 MG/2 ML VIAL IV SCH ×2 (17:22→23:07)
[2023-01-01] MEDS: MONTELUKAST 10 MG TAB PO SCH (19:55)
[2023-01-01] MEDS: FORMOTEROL FUMARATE 20 MCG/2 ML NEBU INHALATION SCH (20:30)
[2023-01-01] MEDS: BUDESONIDE 1 MG/2 ML NEBU INHALATION SCH (20:31)
[2023-01-01] MEDS: SERTRALINE 50 MG TAB PO SCH (20:54)
[2023-01-02] MEDS: PROMETHAZINE 25 MG TAB PO PRN (03:46)
[2023-01-02] MEDS: SODIUM CHLORIDE 0.9% 1,000 ML IV SCH ×2 (03:51→12:51)
[2023-01-02] MEDS: ALBUTEROL NEBULIZED 2.5 MG/3 ML INHALATION PRN (04:07)
[2023-01-02] MEDS: methylPREDNISolone SOD SUCCI 125 MG/2 ML VIAL IV SCH ×4 (04:51→23:08)
[2023-01-02] MEDS: ONDANSETRON 4 MG/2 ML VIAL IVP PRN ×2 (04:51→23:09)
--- NOTE | 2023-01-02 08:08 | P.PN ---
Subjective Progress Note Date: 01/02/23 Principal diagnosis: 7 weeks gestation, acute asthma exacerbation, hyperemesis gravidarum. Tolerating regular food. Still with nausea, no emesis. Overall feeling greatly improved. Objective - Vital Signs Vital signs: Vital Signs Temp 97.9 F 01/01/23 21:23 Pulse 76 01/02/23 04:18 Resp 17 01/02/23 04:00 BP 97/69 01/02/23 04:00 Pulse Ox 96 01/02/23 04:00 FiO2 Intake & Output 01/01/23 01/02/23 01/02/23 18:59 06:59 18:59 Output Total 600 Balance -600 Output: Urine 600 Other: # Voids 2 - Constitutional General appearance: Present: average body habitus, cooperative - EENT ENT: Present: hearing grossly normal - Respiratory Respiratory: right: wheezing (Scattered expiratory wheezing, improved) - Cardiovascular Rhythm: regular - Gastrointestinal General gastrointestinal: Present: normal bowel sounds - Neurologic Neurologic: Present: CNII-XII intact - Musculoskeletal Musculoskeletal: Present: gait normal - Psychiatric Psychiatric: Present: A&O x's 3, appropriate affect, intact judgment & insight - Labs CBC & Chem 7: 12/31/22 16:20 12/31/22 16:20 Assessment and Plan Assessment: 7 weeks gestational age, hyperemesis gravidarum improved clinically, acute asthma exacerbation, also improving Plan: Medical management per pulmonary and medical team. labs drawn this morning. Anticipate discharge home tomorrow. Continue close monitoring. Appreciate assistance of specialty teens. Time with Patient: Less than 30
[2023-01-02] MEDS: FORMOTEROL FUMARATE 20 MCG/2 ML NEBU INHALATION SCH ×2 (08:34→20:01)
[2023-01-02] MEDS: ALBUTEROL NEBULIZED 2.5 MG/3 ML INHALATION SCH ×4 (08:34→20:01)
[2023-01-02] MEDS: BUDESONIDE 1 MG/2 ML NEBU INHALATION SCH ×2 (08:34→20:01)
[2023-01-02] MEDS: FAMOTIDINE 20 MG TAB PO SCH (09:01)
[2023-01-02] MEDS: SERTRALINE 50 MG TAB PO SCH (09:01)
[2023-01-02] MEDS: HEPARIN SODIUM,PORCINE/PF 5,000 UNIT/0.5 ML SYRINGE SQ SCH ×3 (09:01→23:09)
[2023-01-02] MEDS: CALCIUM CARBONATE 500 MG CHEWABLE PO PRN ×3 (09:42→21:44)
[2023-01-02 10:44] LABS: HCT 38.9 % (34.0-46.0); MCH 28.4 pg (25.0-35.0); MCHC 33.4 g/dL (31.0-37.0); MCV 85.1 fL (80.0-100.0); Mean Platelet Volume 10.9; Platelet Count 198 k/uL (150-450); RBC 4.57 m/uL (3.80-5.40); RDW 13.4 % (11.5-15.5); WBC 18.3 k/uL (3.8-10.6)
--- NOTE | 2023-01-02 10:54 | P.PN ---
Subjective Progress Note Date: 01/02/23 Patient is a 27-year-old female who is 7 weeks she is 2 para 2000. She has been struggling with hyperemesis at home as well as worsening shortness of breath and asthma symptoms. She is admitted to [facility] and we were consulted for management of possible asthma. Pulmonary critical care was also consulted. Patient seen and examined at bedside with present. She feels much better than yesterday. She is having some nausea but vomiting has resolved. She was able to tolerate dinner. Her breathing is much better and she has been able to ambulate to the bathroom. She reports that her acid reflux is greatly improved. Significant other at bedside and updated, all questions answered. Vital signs reviewed General: nontoxic, no distress, appears at stated age Cardiovascular: S1S2 reg, no murmur, positive posterior tibial pulse bilateral, Lungs:Decreased bs b/l bases, no rhonchi, no rales , no accessory muscle use Abdominal: soft, nontender to palpation, no guarding, no appreciable organomegaly Ext: no gross muscle atrophy, no edema, no contractures Neuro: CN II-XI grossly intact, no focal neuro deficits Psych: Alert, oriented, appropriate affect Assessment: Acute exacerbation of bronchial asthma Acid reflux due to hyperemesis 7 week Anxiety Data Review: -CBC was available for review and white blood cell count has elevated to 18.3, this is likely reaction to stress as well as steroid use -Basic metabolic profile, BNP, magnesium, and phosphorus are currently pending and will be reviewed as they are available. Plan: -Repeat CBC in a.m. -Continue with Pepcid 20 mg daily as well as Tums as needed -Continue with oral Phenergan 12.5 mg daily -Continue with bronchodilators, Solu-Medrol 60 every 6 -[facility] note reviewed: Awaiting labs, anticipate discharge tomorrow. - Pulm consult reviewed from 01/01- added budesonide and fomoterol, solumedrol increase. Thank you for allowing us to participate in the care of this pleasant patient. Do not hesitate to contact us with questions. Someone can be reached from the [facility] hospitalist group all hours of the day at [phone] or via [email or web address] This dictation was prepared using [employer] voice recognition software. Though every attempt is made to correct errors during during dictation some may still exist. Objective - Vital Signs Vital signs: Vital Signs Temp 97.9 F 01/01/23 21:23 Pulse 80 01/02/23 08:59 Resp 17 01/02/23 04:00 BP 97/69 01/02/23 04:00 Pulse Ox 96 01/02/23 04:00 FiO2 Intake & Output 01/01/23 01/02/23 01/02/23 18:59 06:59 18:59 Output Total 600 Balance -600 Output: Urine 600 Other: # Voids 2 1 - Labs CBC & Chem 7: 01/02/23 09:46 12/31/22 16:20 Labs: Abnormal Lab Results - Last 24 Hours (Table) 01/02/23 Range/Units 09:46 WBC 18.3 H (3.8-10.6) k/uL
[2023-01-02 11:05] LABS: African American GFR (CKD) >90 (>60 ml/min/1.73 sqM); Anion Gap 11 mmol/L; Blood Urea Nitrogen 7 mg/dL (7-17); Calcium 9.2 mg/dL (8.4-10.2); Carbon Dioxide 23 mmol/L (22-30); Chloride 106 mmol/L (98-107); Glucose 112 mg/dL (74-99); Magnesium 1.7 mg/dL (1.6-2.3); Non-African American GFR(CKD) >90 (>60 ml/min/1.73 sqM); Potassium 3.9 mmol/L (3.5-5.1); Sodium 140 mmol/L (137-145)
--- NOTE | 2023-01-02 14:18 | P.PN ---
Subjective Progress Note Date: 01/02/23 Principal diagnosis: Shortness of breath. Pulmonary consult dated 01/01/2023. 27-year-old female who presented to the emergency department on December 31, complaining of nausea, vomiting, diarrhea. She apparently is 7 weeks . She's been having these GI issues for about a day or 2 prior to admission. They had been escalating. She apparently is been treated with vitamin B6, Phenergan, Zofran, and Benadryl. He's also been trying multiple strategies with Gatorade, and crackers. She apparently denied any abdominal pain. It addition, she apparently had upper respiratory tract symptoms with nasal congestion, cough, and wheezing. This is also escalated over the past week. She has no known history of lung disease, although she has a brother with severe asthma. I was asked to see her for this breathing issue. I spoke to the TEMPERATURE INSPECTOR doctor, Dr. Nida Cervantes. I also interviewed and examined the patient, in room 367. White count 11.1, hemoglobin 15.2, hematocrit 43.8, and platelet count normal. Her comprehensive metabolic profile was completely normal. Her urine had 6 RBCs, 5 WBCs, and occasional bacteria. Her leukocyte esterase and nitrite test are both negative. She was tested for influenza, RSV, and coronavirus, and was negative for all 3. Her chest x-ray, was negative. Progress note dated 01/02/2023. 27-year-old female who was seen in consultation yesterday. She is again seen today in room 367. She tells me that she is feeling much better. Her breathing is much improved. She continues on 4 L of oxygen. She's not receiving any IV fluids. I did call and speak to her father yesterday. I also spoke to her TEMPERATURE INSPECTOR doctor. Currently, white count 18.3, with a normal hemoglobin, hematocrit, and platelet count. Sodium, potassium, chloride, CO2, anion gap, BUN, and creatinine are all normal Objective - Vital Signs Vital signs: Vital Signs Temp 98.2 F 01/02/23 08:00 Pulse 84 01/02/23 12:08 Resp 16 01/02/23 08:00 BP 124/62 01/02/23 12:00 Pulse Ox 99 01/02/23 12:00 FiO2 Intake & Output 03/01/02/23 01/02/23 18:59 06:59 18:59 Intake Total 118 Output Total 600 Balance -600 118 Intake: Oral 118 Output: Urine 600 Other: # Voids 2 1 - Exam No acute distress, oriented 3. No audible wheezing. HEENT examination is grossly unremarkable. Neck supple. Full range of motion. No adenopathy thyromegaly or neck vein distention. Cardiovascular examination reveals regular rhythm rate. S1-S2 normal. No S3 or S4. No discernible murmur noted. Heart rate 84 bpm. Lungs reveal scattered expiratory wheezes. Few scattered rhonchi. No crackles. Room air saturations 99%. Abdomen soft bowel sounds are heard. No masses or tenderness. Extremities are intact. No cyanosis clubbing or edema. Skin is without rash or lesion. Neurologic examination is brief but nonfocal. - Labs CBC & Chem 7: 01/02/23 09:46 01/02/23 09:46 Labs: Abnormal Lab Results - Last 24 Hours (Table) 01/02/23 01/02/23 Range/Units 09:46 09:46 WBC 18.3 H (3.8-10.6) k/uL Creatinine 0.50 L (0.52-1.04) mg/dL Glucose 112 H (74-99) mg/dL Assessment and Plan Assessment: Shortness of breath, likely related to new onset chronic bronchial asthma. Strong family history of asthma. Intrauterine , 7 weeks. History of significant hyperemesis gravidarum. Anxiety. Plan: Plan dated 01/01/2023. The patient is seen, interviewed, and examined, and room 367. Labs, x-rays, medications are all reviewed. The patient's asthma regimen was maximized, giving her formoterol 20 g, mixed with 1 mg budesonide, twice a day, as well as nebulized albuterol. In addition, the patient's Solu-Medrol was increased to 60 mg every 6 hours, and she was given Singulair 10 mg at bedtime. We will continue to follow. Her chest x-ray was normal. I did speak to the TEMPERATURE INSPECTOR doctor. I do plan to call the patient's father later today. Plan dated 01/02/2023. The patient appears to be doing better. She states that her breathing is much improved. She still on 4 L, with saturations of 99%. That can be titrated down. She is much less bronchospastic today. She has very few high-pitched wheezes. We will continue to follow and make recommendations along the way. I did speak to her father last night who is a physician at this hospital. I reassured him that she is in good hands. Time with Patient: Less than 30
[2023-01-02 15:46] LABS: Hepatitis B Surface Antigen Nonreactive (Nonreactive)
[2023-01-02 16:51] LABS: HIV 2 AB Non-Reactive (Non-Reactive); HIV AB P24 Non-Reactive (Non-Reactive); HIV P24 AG Non-Reactive (Non-Reactive)
[2023-01-02] MEDS: MONTELUKAST 10 MG TAB PO SCH (21:44)
[2023-01-02] MEDS ORDERED: diphenhydrAMINE 25 MG CAP PO PRN (22:31)
[2023-01-03] MEDS: ALBUTEROL NEBULIZED 2.5 MG/3 ML INHALATION PRN ×2 (00:09→04:14)
[2023-01-03] MEDS: SODIUM CHLORIDE 0.9% 1,000 ML IV SCH ×2 (04:04→06:33)
[2023-01-03] MEDS: methylPREDNISolone SOD SUCCI 125 MG/2 ML VIAL IV SCH ×2 (06:15→11:42)
--- NOTE | 2023-01-03 07:36 | P.DS ---
Providers Date of admission: 12/31/22 19:19 Expected date of discharge: 01/03/23 Attending physician: Nida Cervantes Consults: 12/31/22 19:19 Consult Physician Routine Consulting Provider: Sherrie Huynh Consult Reason/Comments: Asthma Do you want consulting provider notified?: Already Contacted 12/31/22 22:03 Consult Physician Stat Consulting Provider: Shila Bryan Consult Reason/Comments: management of 3S hospitalization Do you want consulting provider notified?: Yes Primary care physician: [facility] Course: This is a 27-year-old female 2 para 1001 at 7-2/7 weeks' gestation. Patient presented to the hospital 3 days ago with shortness of breath, hyperemesis gravidarum, acute exacerbation of asthma. She was admitted to the hospital through the emergency room. Dr. richardson and was counseled to from medical care pulmonology, [facility], [facility]. Please see my initial history and physical for details. Patient was given aggressive medical therapy including steroids as well as breathing treatments every 2-4 hours and has stabilized since admission. This morning respiratory rate is 16-18, mild expiratory wheezes noted. PaO2 99 200%. She is occasionally nauseous but has had no emesis. Ultrasound confirms viable intrauterine , all labs have been drawn. This morning her breathing is much less labored. She is no longer lightheaded or dizzy. I believe she is in reasonably good condition for discharge home. She has a young child at home and is anxious for discharge. We will await medical confirmation, and I suspect patient will be discharged home later this afternoon. I've asked that she follow up with me in the office in 1 week. Continue antacid therapy, Zoloft daily, nebulizers or inhalers per the medical team. Patient is aware to call if the hyperemesis becomes an issue, it breathing is labored or difficult, if she is short of breath or lightheaded, or indeed with any medical concerns. Assessment: Greatly improved from the pulmonary status, metabolically and hemodynamically stable. 7 weeks gestation. Patient Condition at Discharge: Fair Plan - Discharge Summary New Discharge Prescriptions: No Action Vit No.180/Iron/Folic [ Plus Tablet] 1 tab PO DAILY Montelukast Sodium [Singulair] 10 mg PO DAILY Albuterol Sulfate [Albuterol Sulfate Hfa] 2 puff PO RT-Q4H PRN PRN Reason: Shortness Of Breath Aspirin 81 mg PO DAILY Sertraline [Zoloft] 50 mg PO DAILY Promethazine Suppository [Phenergan] 25 mg RECTAL Q8H PRN PRN Reason: Nausea And Vomiting Ondansetron [Zofran] 4 mg PO Q4H PRN PRN Reason: Nausea And Vomiting Loratadine 10 mg PO DAILY Discharge Medication List Vit No.180/Iron/Folic [ Plus Tablet] 1 tab PO DAILY 12/26/21 [History] Albuterol Sulfate [Albuterol Sulfate Hfa] 2 puff PO RT-Q4H PRN 12/31/22 [History] Aspirin 81 mg PO DAILY 12/31/22 [History] Loratadine 10 mg PO DAILY 12/31/22 [History] Montelukast Sodium [Singulair] 10 mg PO DAILY 12/31/22 [History] Ondansetron [Zofran] 4 mg PO Q4H PRN 12/31/22 [History] Promethazine Suppository [Phenergan] 25 mg RECTAL Q8H PRN 12/31/22 [History] Sertraline [Zoloft] 50 mg PO DAILY 12/31/22 [History] Follow up Appointment(s)/Referral(s): Diego Bhatti MD [Primary Care Provider] - 1 Week Discharge Disposition: HOME SELF-CARE
[2023-01-03] MEDS: FORMOTEROL FUMARATE 20 MCG/2 ML NEBU INHALATION SCH (08:42)
[2023-01-03] MEDS: BUDESONIDE 1 MG/2 ML NEBU INHALATION SCH (08:42)
[2023-01-03] MEDS: ALBUTEROL NEBULIZED 2.5 MG/3 ML INHALATION SCH ×2 (08:42→12:00)
[2023-01-03] MEDS: CALCIUM CARBONATE 500 MG CHEWABLE PO PRN (09:08)
[2023-01-03] MEDS: PROMETHAZINE 25 MG TAB PO PRN (09:09)
[2023-01-03] MEDS: FAMOTIDINE 20 MG TAB PO SCH (09:09)
[2023-01-03] MEDS: SERTRALINE 50 MG TAB PO SCH (09:09)
[2023-01-03] MEDS: HEPARIN SODIUM,PORCINE/PF 5,000 UNIT/0.5 ML SYRINGE SQ SCH (09:09)
[2023-01-03 10:28] LABS: HCT 40.1 % (34.0-46.0); HGB 13.6 gm/dL (11.4-16.0); MCH 28.6 pg (25.0-35.0); MCHC 33.9 g/dL (31.0-37.0); MCV 84.6 fL (80.0-100.0); Mean Platelet Volume 10.8; Platelet Count 180 k/uL (150-450); RBC 4.74 m/uL (3.80-5.40); RDW 13.5 % (11.5-15.5); WBC 14.9 k/uL (3.8-10.6)
--- NOTE | 2023-01-03 11:20 | P.PN ---
Subjective Progress Note Date: 01/03/23 Patient is a 27-year-old female who is 7 weeks she is 2 para 2000. She has been struggling with hyperemesis at home as well as worsening shortness of breath and asthma symptoms. She is admitted to [facility] and we were consulted for management of possible asthma. Pulmonary critical care was also consulted. Patient seen and examined at bedside with present. She is doing well. Tolerating a diet. Breathing is much better, but not yet back to baseline. Significant other at bedside and updated, all questions answered. Vital signs reviewed General: nontoxic, no distress, appears at stated age Cardiovascular: S1S2 reg, no murmur, positive posterior tibial pulse bilateral, Lungs:Faint expiratory wheeze left base, no rhonchi, no rales , no accessory mus wai use Abdominal: soft, nontender to palpation, no guarding, no appreciable organomegaly Ext: no gross muscle atrophy, no edema, no contractures Neuro: CN II-XI grossly intact, no focal neuro deficits Psych: Alert, oriented, appropriate affect Assessment: Acute exacerbation of bronchial asthma Acid reflux due to hyperemesis 7 week Anxiety Data Review: -Laboratory analysis reviewed White blood cell count 14.9, hemoglobin 13.6, BNP normal at 548 Plan: -Continue with Pepcid complete once daily on discharge - Rx given for albuterol via nebulizer - Rx of zofran and oral phenergan added to discharge orders - case discussed in detail with Dr. Cervantes and Dr. Escalera who will need the patient in follow-up after discharge. - patient medically optimized for discharge. Thank you for allowing us to participate in the care of this pleasant patient. Do not hesitate to contact us with questions. Someone can be reached from the [facility] hospitalist group all hours of the day at [phone] or via [employer] This dictation was prepared using [employer] voice recognition software. Though every attempt is made to correct errors during during dictation some may still exist. Objective - Vital Signs Vital signs: Vital Signs Temp 98.3 F 01/03/23 08:00 Pulse 86 01/03/23 09:08 Resp 16 01/03/23 08:00 BP 127/79 01/03/23 08:00 Pulse Ox 99 01/03/23 08:54 FiO2 21 03/21/23 20:01 Intake & Output 01/02/23 01/03/23 01/03/23 18:59 06:59 18:59 Intake Total 118 780 0 Balance 118 780 0 Intake: Oral 118 780 0 Other: Voiding Method Toilet Toilet # Voids 1 1 - Labs CBC & Chem 7: 01/03/23 08:37 01/02/23 09:46 Labs: Abnormal Lab Results - Last 24 Hours (Table) 01/02/23 01/03/23 Range/Units 09:46 08:37 WBC 14.9 H (3.8-10.6) k/uL Rubella IgG Antibody 134.00 H (0.00-10.00) IU/mL
[2023-01-03 11:25] VITALS: BP 122/80; RESP 18; TEMP 99.2
[2023-01-03 12:13] VITALS: PULSE 98
[2023-01-03] MEDS: ONDANSETRON 4 MG/2 ML VIAL IVP PRN (12:26)
--- NOTE | 2023-01-03 22:15 | PN ---
PROGRESS NOTE DATE OF SERVICE: 01/03/2023 HISTORY OF PRESENT ILLNESS: This is a 27-year-old female who is 7 weeks , who we saw in consultation 2 days ago. She was admitted with a diagnosis of hyperemesis gravidarum, but also had significant shortness of breath, tightness, wheezing, and cough. We diagnosed her as having new-onset asthma. Anyway, the patient was seen and her medication regimen was adjusted. She is doing much better today. Her saturations are 99% on room air. In my opinion, the patient could be discharged home. I would like to see her in the office in a couple of weeks. She is to follow up with [facility] doctor next week. We are going to discharge her on Trelegy 200, 1 puff daily; Ventolin 2 puffs p.r.n., Singulair 10 mg at bedtime; and prednisone 30 mg a day for 4 days, 20 mg a day for 4 days, 10 mg a day for 4 days, then stop. When we see her in the office, we do some breathing test on her. Currently, as I mentioned, doing much better. PHYSICAL EXAMINATION: VITAL SIGNS: Temperature 99.2, heart rate 85, respiratory rate 18, blood pressure 122/80, mean 94, and a room air saturation 94%. GENERAL: She appears in no acute distress. No audible wheezing, use of accessory muscles, or conversational dyspnea. HEENT: Grossly unremarkable. NECK: Supple, full range of motion. No adenopathy. Neck veins are flat. CARDIOVASCULAR: Reveals regular rhythm rate. Heart rate 85 beats per minute. S1, S2 normal. No murmur. LUNGS: some very mild expiratory rhonchi. No distinct wheezes. Breath sounds are improved. No crackles. Breath sounds are equal bilaterally. ABDOMEN: Soft. EXTREMITIES: Intact. No edema. SKIN: Without rash. NEUROLOGIC: Examination is brief but nonfocal. LABORATORY DATA: Today includes a white count of 14.9 with a normal hemoglobin, hematocrit and platelet count. ASSESSMENT: 1. Shortness of breath, likely secondary to new-onset chronic bronchial asthma. 2. Strong family history of asthma. 3. Intrauterine , 7 weeks. 4. History of significant hyperemesis gravidarum. PLAN: The patient's medications have been written. This includes Singulair 10 mg in the evening, Trelegy 200 one puff daily, Ventolin 2 puffs p.r.n., and a 12-day prednisone burst and taper. The patient will see her INSTALLATION AND REPAIR TECHNICIAN in the office next week. I have asked to see her in my office in a couple of weeks. No additional recommendations are made. She is feeling much better today. Room-air saturations are adequate. MMODL / IJN: [id number] /
== END 2023-01-03 12:43 | disposition home or self-care (01) | DRG 832 ==
LOC: EC 15:59 → 4FBP 19:19 → 3SCARD 21:30
PROVIDERS: ADMIT Obstetrics & Gynecology; ATTEND Obstetrics & Gynecology
DX: O99.511 Diseases of the respiratory system complicating pregnancy, first trimester (principal); J45.901 Unspecified asthma with (acute) exacerbation; O21.0 Mild hyperemesis gravidarum; R06.03 Acute respiratory distress; O99.281 Endocrine, nutritional and metabolic diseases complicating pregnancy, first trimester; E86.0 Dehydration; O99.611 Diseases of the digestive system complicating pregnancy, first trimester; K21.9 Gastro-esophageal reflux disease without esophagitis; O99.341 Other mental disorders complicating pregnancy, first trimester; F41.9 Anxiety disorder, unspecified; Z20.822 Contact with and (suspected) exposure to COVID-19; Z3A.01 Less than 8 weeks gestation of pregnancy; Z79.899 Other long term (current) drug therapy; Z79.82 Long term (current) use of aspirin
CPT/HCPCS: 36415; 71046; 76801; 76817; 80048; 80053; 81001; 83605; 83735; 83880; 84100; 85025; 85027; 86762; 86780; 86850; 86900; 86901; 87340; 87390; 87636; 93005; 94640; 94760; 96360; 96361; 99285

== ENCOUNTER 2023-01-11 09:30 | Inpatient (IN) | payer BC ==
[2023-01-11] MEDS ORDERED: IPRATROPIUM 0.5 MG/2.5 ML NEBU INHALATION STA (09:43)
[2023-01-11] MEDS ORDERED: ALBUTEROL NEBULIZED 2.5 MG/3 ML INHALATION STA ×2 (09:43→16:16)
--- NOTE | 2023-01-11 10:00 | ED ---
General Adult HPI - General Chief complaint: Shortness of Breath Stated complaint: BREATHING Time Seen by Provider: 01/11/23 09:32 Source: patient Mode of arrival: ambulatory Limitations: no limitations - History of Present Illness Initial comments: Dictation was produced using [employer] dictation software. please excuse any grammatical, word or spelling errors. Chief Complaint: 27-year-old 8 week female presents to the emergency room for persistent dyspnea History of Present Illness: 27-year-old female she has no significant comorbidities. She apparently does have strong family history of asthma. Patient is allegedly 6 weeks . [facility], Dr. Cervantes oversees the patient's . Patient was here in our emergency department December 31. She was admitted for hyperemesis gravidarum. She was also found to have new onset asthma. She was seen and evaluated by internal medicine and rd manager during her stay. She was discharged. She'll follow up with primary care doctor. She apparently has not been improving despite all the pulmonary medication treatments. She went to see the rd manager today who referred patient to the emergency department for further care. I did speak with Dr. Escalera states that patient is very winded in the office. Mapping Analyst did consider performing a CT to evaluate further for causes of dyspnea. Patient has any fevers. She was exposed to some sick individuals recently. Denies any chest pain. Denies any lower extremity swelling or pain. The ROS documented in this emergency department record has been reviewed and confirmed by me. Those systems with pertinent positive or negative responses have been documented in the HPI. All other systems are other negative and/or noncontributory. PHYSICAL EXAM: General Impression: Alert and oriented x3, not in acute distress HEENT: Normocephalic atraumatic, extra-ocular movements intact, pupils equal and reactive to light bilaterally, mucous membranes moist. Cardiovascular: Heart regular rate and rhythm Chest: Able to complete full sentences, no retractions, no tachypnea, mild end expiratory rhonchi Abdomen: abdomen soft, non-tender, non-distended, no organomegaly Musculoskeletal: Pulses present and equal in all extremities, no peripheral edema Motor: no focal deficits noted Neurological: CN II-XII grossly intact, no focal motor or sensory deficits noted Skin: Intact with no visualized rashes Psych: Normal affect and mood ED course: 27-year-old 8 week female recently diagnosed with new-onset asthma presents to the emergency department for persistent dyspnea. Vital signs upon arrival shows mild dyspnea with tachypnea of 26, heart rate of 121, worse vital signs within acceptable limits. Patient's well. At the bedside she does not appear significantly dyspneic. Nursing notes and chart review was performed EKG interpreted by me: Ventricular rate 99, sinus rhythm,. 132, QRS 68, QTC 368. No [place] prolongation, no QTC prolongation, no ST or T-wave changes noted. Overall, this EKG is unremarkable Risks and benefits of ionizing radiation exposure and IV contrast exposure during were discussed with patient. She is understandable of the risks . She is agreeable with performing CT study. Was pt. sent in by a medical professional or institution (, PA, TRAVEL RN OR, urgent care, hospital, or penitentiary...) When possible be specific @ -Sent in from pulmonologists clinic Did you speak to anyone other than the patient for history (EMS, parent, family, police, friend...)? What history was obtained from this source @ -With Dr. Escalera pulmonology Did you review nursing and triage notes (agree or disagree)? Why? @ -I reviewed and agree with nursing and triage notes Were old charts reviewed (outside hosp., previous admission, EMS record, old EKG, old radiological studies, urgent care reports/EKG's, penitentiary records)? Report findings @ -Prior [facility] and pulmonology reports reviewed Differential Diagnosis (chest pain, altered mental status, abdominal pain women, abdominal pain men, vaginal bleeding, musculoskeletal, weakness, fever, dyspnea, syncope, headache, dizziness, GI bleed, back pain, seizure, CVA, palpatations, mental health)? @ -Differential Dyspnea: Coronary syndrome, arrhythmia, tamponade, asthma, COPD, pulmonary embolism, pneumonia, pneumothorax, pulmonary effusion, anaphylaxis, diabetic ketoacidosis, flailed chest, pulmonary contusion, diaphragmatic rupture, anemia, neuromuscular, this is not meant to be an all-inclusive list. EKG interpreted by me (3pts min.). @ -See above X-rays interpreted by me (1pt min.). @ -Nonacute CT interpreted by me (1pt min.). @ -None done U/S interpreted by me (1pt. min.). @ -None done What testing was considered but not performed or refused? (CT, X-rays, U/S, labs)? Why? @ -CT angiography to assess for pulmonary embolism was considered however given patient's clinical presentation which is likely from bronchoconstriction made possibility of pulmonary embolism less likely given that the patient is did not warrant radiation exposure. What meds were considered but not given or refused? Why? @ -None Did you discuss the management of the patient with other professionals (professionals i.e. DrCory, PA, TRAVEL RN OR, lab, RT, psych nurse, child welfare social worker, food assembler commissary kitchen, teacher, inspectors and regulatory officers, showcase maker)? Give summary @ -No Was smoking cessation discussed for >3mins.? @ -No Was critical care preformed (if so, how long)? @ -No Were there social determinants of health that impacted care today? How? (Homelessness, low income, unemployed, alcoholism, drug addiction, transportation, low edu. Level, literacy, decrease access to med. care, fdc, rehab)? @ -No Was there de-escalation of care discussed even if they declined (Discuss DNR or withdrawal of care, Hospice)? DNR status @ -No What co-morbidities impacted this encounter? (DM, HTN, Smoking, COPD, CAD, Cancer, CVA, ARF, Chemo, Hep., AIDS, mental health diagnosis, sleep apnea, morbid obesity)? @ -None Was patient admitted / discharged? Hospital course, mention meds given and route, prescriptions, significant lab abnormalities, going to OR and other pertinent info. @ -27 Year-old female who is 8 weeks presents to the emergency department for persistent dyspnea. She is feeling outpatient treatment. She was sent here from pulmonologists for further care. Laboratory evaluation obtained. Patient has a leukocytosis likely secondary to de-margination from steroid use. Rest of labs are unremarkable. Chest x-ray is nonacute. Patient given breathing treatment with improvement. Clinical presentation consistent with bronchoconstriction. Given the patient is feeling outpatient treatment she'll be admitted for further care. Undiagnosed new problem with uncertain prognosis? @ -No Drug Therapy requiring intensive monitoring for toxicity (Heparin, Nitro, Insulin, Cardizem)? @ -No Were any procedures done? @ -No Diagnosis/symptom? Acute, or Chronic, or Acute on Chronic? Uncomplicated (without systemic symptoms) or Complicated (systemic symptoms)? @ -1. Status asthmaticus Side effects of treatment? @ -No Exacerbation, Progression, or Severe Exacerbation? @ -progression Poses a threat to life or bodily function? How? (Chest pain, [place], MA, pneumonia, PE, COPD, DKA, ARF, appy, cholecystitis, CVA, Diverticulitis, Homicidal, Suicidal, threat to staff... and all critical care pts) @ -Yes - Related Data Home Medications Medication Instructions Recorded Confirmed Vit No.180/Iron/Folic 1 tab PO DAILY 12/26/21 01/11/23 [ Plus Vitamin-Mineral] Albuterol Sulfate [Albuterol 2 puff INHALATION RT-Q4H PRN 12/31/22 01/11/23 Sulfate Hfa] Aspirin 81 mg PO DAILY 12/31/22 01/11/23 Loratadine 10 mg PO DAILY 12/31/22 01/11/23 Montelukast Sodium [Singulair] 10 mg PO DAILY 12/31/22 01/11/23 Sertraline [Zoloft] 50 mg PO DAILY 12/31/22 01/11/23 Albuterol Nebulized [Ventolin 2.5 mg INHALATION RT-QID 01/11/23 01/11/23 Nebulized] Previous Rx's Medication Instructions Recorded Calcium Carbonate [Tums] 500 mg PO TID PRN tab 01/03/23 Famotidine [Pepcid] 20 mg PO DAILY tab 01/03/23 Ondansetron [Zofran] 4 mg PO Q4H PRN #120 tab 01/03/23 Promethazine [Phenergan] 12.5 mg PO Q6HR PRN #30 tab 01/03/23 diphenhydrAMINE [Benadryl] 50 mg PO HS PRN cap 01/03/23 Allergies Allergy/AdvReac Type Severity Reaction Status Date / Time No Known Allergies Allergy Verified 01/11/23 10:22 Review of Systems ROS Statement: Those systems with pertinent positive or pertinent negative responses have been documented in the HPI. ROS Other: All systems not noted in ROS Statement are negative. Past Medical History Past Medical History: No Reported History Additional Past Medical History / Comment(s): anxiety History of Any Multi-Drug Resistant Organisms: None Reported Past Surgical History: Section Past Anesthesia/Blood Transfusion Reactions: No Reported Reaction Past Psychological History: No Psychological Hx Reported Smoking Status: Never smoker Past Alcohol Use History: None Reported Past Drug Use History: None Reported - Past Family History Father Family Medical History: No Reported History General Exam Limitations: no limitations Course Vital Signs 01/11/23 01/11/23 01/11/23 09:35 10:05 10:16 Temperature 98.3 F Pulse Rate 121 H 94 90 Respiratory 26 H Rate Blood Pressure 117/68 O2 Sat by Pulse 96 Oximetry 01/11/23 01/11/23 01/11/23 10:32 11:03 12:00 Temperature Pulse Rate 98 103 H 106 H Respiratory 16 18 Rate Blood Pressure 127/92 121/74 O2 Sat by Pulse 99 99 Oximetry Medical Decision Making - Lab Data Result diagrams: 01/11/23 09:58 01/11/23 09:58 Lab Results 01/11/23 01/11/23 01/11/23 Range/Units 09:58 09:58 09:58 WBC 16.9 H (3.8-10.6) k/uL RBC 5.06 (3.80-5.40) m/uL Hgb 14.2 (11.4-16.0) gm/dL Hct 42.7 (34.0-46.0) % MCV 84.5 (80.0-100.0) fL MCH 28.1 (25.0-35.0) pg MCHC 33.2 (31.0-37.0) g/dL RDW 13.1 (11.5-15.5) % Plt Count 247 (150-450) k/uL MPV 9.6 Neutrophils % 76 % Lymphocytes % 18 % Monocytes % 5 % Eosinophils % 1 % Basophils % 0 % Neutrophils # 12.8 H (1.3-7.7) k/uL Lymphocytes # 3.0 (1.0-4.8) k/uL Monocytes # 0.8 (0-1.0) k/uL Eosinophils # 0.1 (0-0.7) k/uL Basophils # 0.0 (0-0.2) k/uL VBG pH (7.31-7.41) VBG pCO2 (37-51) mmHg VBG HCO3 (24-28) mmol/L Sodium 137 (137-145) mmol/L Potassium 4.3 (3.5-5.1) mmol/L Chloride 101 (98-107) mmol/L Carbon Dioxide 25 (22-30) mmol/L Anion Gap 11 mmol/L BUN 10 (7-17) mg/dL Creatinine 0.54 (0.52-1.04) mg/dL Est GFR (CKD-EPI)AfAm >90 (>60 ml/min/1.73 sqM) Est GFR (CKD-EPI)NonAf >90 (>60 ml/min/1.73 sqM) Glucose 81 (74-99) mg/dL Calcium 9.6 (8.4-10.2) mg/dL Magnesium (1.6-2.3) mg/dL Total Bilirubin 0.7 (0.2-1.3) mg/dL AST 19 (14-36) U/L ALT 24 (4-34) U/L Alkaline Phosphatase 95 (38-126) U/L NT-Pro-B Natriuret Pep 12 pg/mL Total Protein 7.0 (6.3-8.2) g/dL Albumin 4.1 (3.5-5.0) g/dL 01/11/23 01/11/23 Range/Units 09:58 09:58 WBC (3.8-10.6) k/uL RBC (3.80-5.40) m/uL Hgb (11.4-16.0) gm/dL Hct (34.0-46.0) % MCV (80.0-100.0) fL MCH (25.0-35.0) pg MCHC (31.0-37.0) g/dL RDW (11.5-15.5) % Plt Count (150-450) k/uL MPV Neutrophils % % Lymphocytes % % Monocytes % % Eosinophils % % Basophils % % Neutrophils # (1.3-7.7) k/uL Lymphocytes # (1.0-4.8) k/uL Monocytes # (0-1.0) k/uL Eosinophils # (0-0.7) k/uL Basophils # (0-0.2) k/uL VBG pH 7.35 (7.31-7.41) VBG pCO2 37 (37-51) mmHg VBG HCO3 20 L (24-28) mmol/L Sodium (137-145) mmol/L Potassium (3.5-5.1) mmol/L Chloride (98-107) mmol/L Carbon Dioxide (22-30) mmol/L Anion Gap mmol/L BUN (7-17) mg/dL Creatinine (0.52-1.04) mg/dL Est GFR (CKD-EPI)AfAm (>60 ml/min/1.73 sqM) Est GFR (CKD-EPI)NonAf (>60 ml/min/1.73 sqM) Glucose (74-99) mg/dL Calcium (8.4-10.2) mg/dL Magnesium 1.9 (1.6-2.3) mg/dL Total Bilirubin (0.2-1.3) mg/dL AST (14-36) U/L ALT (4-34) U/L Alkaline Phosphatase (38-126) U/L NT-Pro-B Natriuret Pep pg/mL Total Protein (6.3-8.2) g/dL Albumin (3.5-5.0) g/dL Disposition Clinical Impression: Status asthmaticus Disposition: ADMITTED IP TO THIS [facility] Condition: Serious Decision Time: 11:54
[2023-01-11 10:19] LABS: Basophils % (A) 0 %; Eosinophils # (A) 0.1 k/uL (0-0.7); Eosinophils % (A) 1 %; HCT 42.7 % (34.0-46.0); HGB 14.2 gm/dL (11.4-16.0); Lymphocytes % (A) 18 %; MCH 28.1 pg (25.0-35.0); MCHC 33.2 g/dL (31.0-37.0); MCV 84.5 fL (80.0-100.0); Mean Platelet Volume 9.6; Monocytes # (A) 0.8 k/uL (0-1.0); Monocytes % (A) 5 %; Neutrophils # (A) 12.8 k/uL (1.3-7.7); Neutrophils % (A) 76 %; Platelet Count 247 k/uL (150-450); RBC 5.06 m/uL (3.80-5.40); RDW 13.1 % (11.5-15.5); WBC 16.9 k/uL (3.8-10.6)
[2023-01-11 10:24] LABS: VBG PH 7.35 (7.31-7.41)
[2023-01-11 10:35] LABS: ALT 24 U/L (4-34); AST 19 U/L (14-36); African American GFR (CKD) >90 (>60 ml/min/1.73 sqM); Albumin 4.1 g/dL (3.5-5.0); Alkaline Phosphatase 95 U/L (38-126); Anion Gap 11 mmol/L; Blood Urea Nitrogen 10 mg/dL (7-17); Calcium 9.6 mg/dL (8.4-10.2); Carbon Dioxide 25 mmol/L (22-30); Chloride 101 mmol/L (98-107); Glucose 81 mg/dL (74-99); Non-African American GFR(CKD) >90 (>60 ml/min/1.73 sqM); Sodium 137 mmol/L (137-145); Total Bilirubin 0.7 mg/dL (0.2-1.3)
--- NOTE | 2023-01-11 10:47 | XR ---
EXAMINATION TYPE: XR chest 2V DATE OF EXAM: 01/11/2023 10:42 AM COMPARISON: Chest radiographs from 12/31/2022 TECHNIQUE: XR chest 2V Frontal and lateral views of the chest. CLINICAL INDICATION:Female, 27 years old with history of dyspnea; FINDINGS: Lungs/Pleura: There is no evidence of pleural effusion, focal consolidation, or pneumothorax. Pulmonary vascularity: Unremarkable. Heart/mediastinum: Cardiomediastinal silhouette is unremarkable. Musculoskeletal: No acute osseous pathology. IMPRESSION: No acute cardiopulmonary disease/process.
[2023-01-11] MEDS: MAGNESIUM SULFATE-D5W PMX 1 GM in DEXTROSE/WATER 1 100ML.BAG IVPB SCH ×2 (10:54→13:08)
[2023-01-11 10:55] LABS: Potassium 4.3 mmol/L (3.5-5.1)
[2023-01-11] MEDS ORDERED: METOCLOPRAMIDE 5 MG/ML 2 ML VIAL IVP STA (11:38)
[2023-01-11] MEDS ORDERED: NALOXONE 0.4 MG/ML 1 ML VIAL IV PRN (11:50)
[2023-01-11] MEDS ORDERED: IPRATROPIUM-ALBUTEROL 3 ML NEB INHALATION STA (13:01)
--- NOTE | 2023-01-11 15:18 | P.CNPUL ---
History of Present Illness Consult date: 01/11/23 Reason for consult: dyspnea History of present illness: This is a 27-year-old female patient was currently and her seventh week of gestation, was coming into the hospital because of worsening shortness of breath. The patient was seen in our office and Dr. Escalera and over the patient to the emergency department admitted as the patient was having significant respiratory distress. Noted the patient was in a hospital approximately a week ago. He was admitted for nausea and emesis and diarrhea. She was having excessive GI related issues. During her hospital stay, she was also noted to be short of breath. Based on that, pulmonary consultation was requested. Patient was treated and the patient was discharged home on a course of a prednisone burst taper which was essentially short course. He denies having any significant improvement and the patient had to come back to the hospital. She has no history of asthma. She has a family history of asthma. No smoking. No exposure to respiratory irritants. The patient has pets at home, yet she developed an ALLERGIC. She has occasional heartburn. During her last evaluation, she tested negative for influenza, RSV and Covid 19. A chest x-ray was also negative. 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 Her GI symptoms have essentially subsided. On her blood work, she has a white second of 16.9, normal hemoglobin, d-dimer is at 0.49, X are all within normal limits. Note that his the patient's second . Her first was essentially uneventful. Review of Systems Constitutional: Reports as per HPI Eyes: denies as per HPI, denies blurred vision, denies bulging eye, denies decreased vision, denies diplopia, denies discharge, denies dry eye, denies irritation, denies itching, denies pain, denies photophobia, denies loss of peripheral vision, denies loss of vision, denies tunnel vision/blind spots Ears: deny: decreased hearing, ear discharge, earache, tinnitus Ears, nose, mouth and throat: Reports as per HPI Breasts: absent: as per HPI, change in shape, gynecomastia, masses, nipple discharge, pain, skin changes, swelling Breasts: Reports as per HPI Cardiovascular: Reports decreased exercise tolerance, Reports dyspnea on exertion Respiratory: Reports cough, Reports dyspnea, Reports wheezing Gastrointestinal: Reports as per HPI Genitourinary: Reports as per HPI Menstruation: Reports as per HPI Musculoskeletal: Reports as per HPI Musculoskeletal: absent: ankle pain, ankle stiffness, ankle swelling Integumentary: Reports as per HPI Neurological: Reports as per HPI Psychiatric: Reports as per HPI Endocrine: Reports as per HPI Hematologic/Lymphatic: Reports as per HPI Past Medical History Past Medical History: No Reported History Additional Past Medical History / Comment(s): anxiety History of Any Multi-Drug Resistant Organisms: None Reported Past Surgical History: Section Past Anesthesia/Blood Transfusion Reactions: No Reported Reaction Past Psychological History: No Psychological Hx Reported Smoking Status: Never smoker Past Alcohol Use History: None Reported Past Drug Use History: None Reported - Past Family History Father Family Medical History: No Reported History Medications and Allergies Home Medications Medication Instructions Recorded Confirmed Type Vit No.180/Iron/Folic 1 tab PO DAILY 12/26/21 01/11/23 History [ Plus Vitamin-Mineral] Albuterol Sulfate [Albuterol 2 puff INHALATION RT-Q4H PRN 12/31/22 01/11/23 History Sulfate Hfa] Aspirin 81 mg PO DAILY 12/31/22 01/11/23 History Loratadine 10 mg PO DAILY 12/31/22 01/11/23 History Montelukast Sodium [Singulair] 10 mg PO DAILY 12/31/22 01/11/23 History Sertraline [Zoloft] 50 mg PO DAILY 12/31/22 01/11/23 History Calcium Carbonate [Tums] 500 mg PO TID PRN tab 01/03/23 01/11/23 Rx Famotidine [Pepcid] 20 mg PO DAILY tab 01/03/23 01/11/23 Rx Ondansetron [Zofran] 4 mg PO Q4H PRN #120 tab 01/03/23 01/11/23 Rx Promethazine [Phenergan] 12.5 mg PO Q6HR PRN #30 tab 01/03/23 01/11/23 Rx diphenhydrAMINE [Benadryl] 50 mg PO HS PRN cap 01/03/23 01/11/23 Rx Albuterol Nebulized [Ventolin 2.5 mg INHALATION RT-QID 03/30/23 03/30/23 History Nebulized] Allergies Allergy/AdvReac Type Severity Reaction Status Date / Time No Known Allergies Allergy Verified 01/11/23 10:22 Physical Exam Vitals: Vital Signs Temp Pulse Resp BP Pulse Ox 01/11/23 13:18 104 H 01/11/23 13:07 100 01/11/23 12:00 106 H 18 121/74 99 01/11/23 11:03 103 H 16 127/92 99 01/11/23 10:32 98 01/11/23 10:16 90 01/11/23 10:05 94 01/11/23 09:35 98.3 F 121 H 26 H 117/68 96 Intake and Output 01/11/23 01/11/23 01/11/23 06:59 14:59 22:59 Other: Weight 86.183 kg The patient is calm and comfortable at rest and she is currently on 2 L of oxygen by nasal cannula Head exam was generally normal. There was no scleral icterus or corneal arcus. Mucous membranes were moist. Neck was supple and without jugular venous distension, thyromegaly, or carotid bruits. Carotids were easily palpable bilaterally. There was no adenopathy. Lungs sounds are diminished bilaterally and the patient is prolongation of the exhalation phase of breathing. The patient diminished breath on bilaterally. The patient also has exhalation wheezing. No stridor. Cardiac exam revealed the PMI to be normally situated and sized. The rhythm was regular and no extrasystoles were noted during several minutes of auscultation. The first and second heart sounds were normal and physiologic splitting of the second heart sound was noted. There were no murmurs, rubs, clicks, or gallops. Abdominal exam revealed normal bowel sounds. The abdomen was soft, non-tender, and without masses, organomegaly, or appreciable enlargement of the abdominal aorta. Examination of the extremities revealed easily palpable radial, femoral and pedal pulses. There was no cyanosis, clubbing or edema. Examination of the skin revealed no evidence of significant rashes, suspicious appearing nevi or other concerning lesions. Neurologically, the patient is awake and alert and the patient does not have any focal neurological deficit. Cranial nerves are essentially intact. Results - Laboratory Findings CBC and BMP: 01/11/23 09:58 01/11/23 09:58 ABG WBC 16.9 k/uL (3.8-10.6) H 01/11/23 09:58 RBC 5.06 m/uL (3.80-5.40) 01/11/23 09:58 Hgb 14.2 gm/dL (11.4-16.0) 01/11/23 09:58 Hct 42.7 % (34.0-46.0) 01/11/23 09:58 MCV 84.5 fL (80.0-100.0) 01/11/23 09:58 MCH 28.1 pg (25.0-35.0) 01/11/23 09:58 MCHC 33.2 g/dL (31.0-37.0) 01/11/23 09:58 RDW 13.1 % (11.5-15.5) 01/11/23 09:58 Plt Count 247 k/uL (150-450) 01/11/23 09:58 MPV 9.6 01/11/23 09:58 Neutrophils % 76 % 01/11/23 09:58 Lymphocytes % 18 % 01/11/23 09:58 Monocytes % 5 % 01/11/23 09:58 Eosinophils % 1 % 01/11/23 09:58 Basophils % 0 % 01/11/23 09:58 Neutrophils # 12.8 k/uL (1.3-7.7) H 01/11/23 09:58 Lymphocytes # 3.0 k/uL (1.0-4.8) 01/11/23 09:58 Monocytes # 0.8 k/uL (0-1.0) 01/11/23 09:58 Eosinophils # 0.1 k/uL (0-0.7) 01/11/23 09:58 Basophils # 0.0 k/uL (0-0.2) 01/11/23 09:58 D-Dimer 0.49 mg/L FEU (<0.60) 01/11/23 13:17 VBG pH 7.35 (7.31-7.41) 01/11/23 09:58 VBG pCO2 37 mmHg (37-51) 01/11/23 09:58 VBG HCO3 20 mmol/L (24-28) L 01/11/23 09:58 Sodium 137 mmol/L (137-145) 01/11/23 09:58 Potassium 4.3 mmol/L (3.5-5.1) 01/11/23 09:58 Chloride 101 mmol/L (98-107) 01/11/23 09:58 Carbon Dioxide 25 mmol/L (22-30) 01/11/23 09:58 Anion Gap 11 mmol/L 01/11/23 09:58 BUN 10 mg/dL (7-17) 01/11/23 09:58 Creatinine 0.54 mg/dL (0.52-1.04) 01/11/23 09:58 Est GFR (CKD-EPI)AfAm >90 (>60 ml/min/1.73 sqM) 01/11/23 09:58 Est GFR (CKD-EPI)NonAf >90 (>60 ml/min/1.73 sqM) 01/11/23 09:58 Glucose 81 mg/dL (74-99) 01/11/23 09:58 Calcium 9.6 mg/dL (8.4-10.2) 01/11/23 09:58 Magnesium 1.9 mg/dL (1.6-2.3) 01/11/23 09:58 Total Bilirubin 0.7 mg/dL (0.2-1.3) 01/11/23 09:58 AST 19 U/L (14-36) 01/11/23 09:58 ALT 24 U/L (4-34) 01/11/23 09:58 Alkaline Phosphatase 95 U/L (38-126) 01/11/23 09:58 NT-Pro-B Natriuret Pep 12 pg/mL 01/11/23 09:58 Total Protein 7.0 g/dL (6.3-8.2) 01/11/23 09:58 Albumin 4.1 g/dL (3.5-5.0) 01/11/23 09:58 PT/INR, D-dimer D-Dimer 0.49 mg/L FEU (<0.60) 01/11/23 13:17 Abnormal lab findings: Abnormal Labs 01/11/23 01/11/23 09:58 09:58 WBC 16.9 H Neutrophils # 12.8 H VBG HCO3 20 L - Diagnostic Findings Chest x-ray: image reviewed Assessment and Plan Plan: Asthma exacerbation. The patient is acting acutely bronchospastic and wheezy and she was hospitalized and treated and following her discharge her symptoms occurred. She has severe obstructive airway limitation in her spirometry that was done in the office. She is short of breath. She is coming in for further evaluation. Chest x-ray is clear. D-dimer is at low. She does have some mild leukocytosis. Shortness of breath secondary to above , seventh week of gestation Anxiety History of hyperemesis related to , recovered Plan I do not see need for a CAT scan imaging as the suspicion for pulmonary embolism extremely low. The patient acutely bronchus spastic and wheezing and she is clearly obstructed on her spirometry. She will placed on budesonide neb treatments and Perforomist unless treatments twice a day Albuterol neb blotchiness 4 times a day IV Solu-Medrol 60 mg every 6 hours Oxygen to maintain saturation above 90% TRUCK ENGINE TECHNICIAN evaluation regarding her Resume all medications We'll continue to follow
[2023-01-11] MEDS ORDERED: methylPREDNISolone SOD SUCCI 40 MG/ML 1 ML VIAL IV SCH (16:00)
--- NOTE | 2023-01-11 16:47 | US ---
EXAMINATION TYPE: Transabdominal DATE OF EXAM: 01/11/2023 4:14 PM COMPARISON: Recent ultrasound 11 days ago CLINICAL HISTORY: asthma, . Asthma attack EXAM PERFORMED: Transabdominal (TA) EXAM MEASUREMENTS: GESTATIONAL AGE / DATING Physician Established: (8 weeks/4 days) EDC: 08/19/2023 Dates by LMP: (8 weeks/4 days) EDC: 08/19/2023 Dates by First Scan: (9 weeks/1 days) EDC: 08/15/2023 Dates by Current Scan for: (9 weeks/1 days) EDC: 08/15/2023 MATERNAL ANATOMY Uterus: 12.9 x 7.4 x 7.9 cm Right Ovary: 2.6 x 2.4 x 2.4 cm Left Ovary: 3.2 x 2.3 x 2.9 cm Post CDS / Adnexa: wnl Presence of free fluid: No Presence of subchorionic bleed: No GESTATION / SURVEY CRL: 2.4 cm (9 weeks/1 days) MSD: wnl Heart Rate: 179 bpm Rhythm: Normal IUP: Viable IUP Single, viable IUP/ No abnormality visualized at this time Single live intrauterine gestation is redemonstrated. No cervical thinning. No free fluid. Both ovaries redemonstrated. No suspicious adnexal masses. Interval growth noted. IMPRESSION: As above.
[2023-01-11] MEDS: SODIUM CHLORIDE 0.9% 1,000 ML IV SCH (17:11)
[2023-01-11] MEDS: methylPREDNISolone SOD SUCCI 125 MG/2 ML VIAL IV SCH ×2 (17:58→23:16)
[2023-01-11 19:44] LABS: T4, Free (Free Thyroxine) 1.73 ng/dL (0.78-2.19)
--- NOTE | 2023-01-11 20:07 | P.CON ---
Consult Note - . Consult date: 01/11/23 Assessment/Plan:: This is a 27-year-old female 2 para 1001 at 8-4/7 weeks' gestation who was admitted to our hospital on 12/31/2022 with hyperemesis gravidarum and acute asthma exacerbation. Patient has no prior history of pulmonary disorder. She was hospitalized for 4 days, went home on nebulized albuterol treatments, loratadine, Singulair, Zoloft, and baby aspirin. Patient is reasonably comfortable at rest, but extremely short of breath with any type of movement. She was seen by Dr. Mckee earlier this morning in the office and sent to the emergency room for readmission for status asthmaticus. Family history is significant for asthma in the patient's brother only. Past medical history significant for anxiety, and hyperemesis gravidarum. Past surgical history section approximate 2 years ago with a liveborn healthy male infant, low transverse, for nonreassuring heart tones. ALLERGIES none known. Social history patient is , she is employed, and has a 2-year-old son at home. She has never been a tobacco smoker, no the patient. No alcohol or other drug use. On exam patient is 5 foot 4 inches, 86 kg, temperature 98.3, blood pressure 117/68, pulse 121, respirations 26. Patient has audible rales and inspiratory and expiratory wheezing. Her extremities reveal no edema, no cords and no areas of tenderness. Normal reflexes.. Her breasts are slightly engorged, she recently completed breast-feeding. The abdomen is soft and nontender. Chest x-ray is essentially negative, no evidence of pneumonia or aspiration. Hemoglobin 14.2, hematocrit 42.7, platelets 247,000, WBCs 16.9. Ultrasound reveals a viable intrauterine with a heart rate of 179. 8-4/7 weeks' gestation, consistent with EDC previously established impression: 8-4/7 weeks intrauterine , acute asthma exacerbation, second hospitalization in the first trimester for same. Certainly appreciate pulmonary assessment and following. No further obstetrical orders at this time. All labs previously drawn and within normal limits. Thank you for the consultation.
[2023-01-11] MEDS: BUDESONIDE 0.5 MG/2 ML NEBU INHALATION SCH (20:43)
[2023-01-11] MEDS: FORMOTEROL FUMARATE 20 MCG/2 ML NEBU INHALATION SCH (20:43)
[2023-01-11] MEDS: ALBUTEROL NEBULIZED 2.5 MG/3 ML INHALATION PRN (20:44)
[2023-01-11] MEDS ORDERED: diphenhydrAMINE 25 MG CAP PO SCH (21:45)
[2023-01-11] MEDS: FAMOTIDINE 20 MG TAB PO SCH (22:05)
[2023-01-11] MEDS: ONDANSETRON 4 MG TAB PO PRN (22:34)
[2023-01-11] MEDS ORDERED: ASPIRIN 81 MG PO SCH (23:15)
[2023-01-11] MEDS ORDERED: MONTELUKAST 10 MG TAB PO SCH (23:15)
[2023-01-11] MEDS ORDERED: LORATADINE 10 MG TAB PO SCH (23:30)
[2023-01-12] MEDS: PROMETHAZINE 25 MG TAB PO PRN ×2 (00:38→14:09)
[2023-01-12] MEDS: ALBUTEROL NEBULIZED 2.5 MG/3 ML INHALATION PRN ×5 (00:59→16:14)
[2023-01-12] MEDS: methylPREDNISolone SOD SUCCI 125 MG/2 ML VIAL IV SCH ×3 (05:14→17:25)
[2023-01-12] MEDS: FAMOTIDINE 20 MG TAB PO SCH (08:21)
[2023-01-12] MEDS: ONDANSETRON 4 MG TAB PO PRN ×2 (08:21→17:25)
--- NOTE | 2023-01-12 08:39 | P.PN ---
Subjective Progress Note Date: 01/12/23 Principal diagnosis: 8-5/7 weeks intrauterine , severe asthma exacerbation. Patient slept reasonably well. Breathing still quite labored. Objective - Vital Signs Vital signs: Vital Signs Temp 97.7 F 01/12/23 02:00 Pulse 108 H 01/12/23 04:55 Resp 18 01/12/23 02:00 BP 122/69 01/12/23 02:00 Pulse Ox 96 01/12/23 02:00 FiO2 Intake & Output 01/11/23 01/12/23 01/12/23 18:59 06:59 18:59 Intake Total 500 Balance 500 Weight 86.183 kg Intake: Oral 500 Other: # Voids 1 1 # Bowel Movements 0 - Constitutional General appearance: Present: average body habitus - EENT Eyes: Present: PERRLA - Neck Neck: Present: normal ROM - Respiratory Respiratory: bilateral: diminished, rhonchi, wheezing - Cardiovascular Rhythm: regular - Gastrointestinal General gastrointestinal: Present: normal bowel sounds - Integumentary Integumentary: Present: normal - Neurologic Neurologic: Present: CNII-XII intact - Musculoskeletal Musculoskeletal: Present: generalized weakness - Psychiatric Psychiatric: Present: A&O x's 3, appropriate affect, intact judgment & insight - Labs CBC & Chem 7: 01/11/23 09:58 01/11/23 09:58 Labs: Abnormal Lab Results - Last 24 Hours (Table) 01/11/23 01/11/23 Range/Units 09:58 09:58 WBC 16.9 H (3.8-10.6) k/uL Neutrophils # 12.8 H (1.3-7.7) k/uL VBG HCO3 20 L (24-28) mmol/L Assessment and Plan Assessment: 8-5/7 weeks intrauterine . Status asthmaticus Plan: Continue management per pulmonary team. Will add elastic stockings for DVT prophylaxis. D-dimer low. Time with Patient: Less than 30
[2023-01-12 08:43] VITALS: TEMP 97.8
[2023-01-12] MEDS ORDERED: MONTELUKAST 10 MG TAB PO SCH (09:00)
[2023-01-12] MEDS ORDERED: LORATADINE 10 MG TAB PO SCH (09:00)
[2023-01-12] MEDS ORDERED: FAMOTIDINE 20 MG TAB PO SCH (09:00)
[2023-01-12] MEDS ORDERED: PRENATAL VIT-IRON-FOLIC ACID 1 EACH TABLET PO SCH (09:00)
[2023-01-12] MEDS ORDERED: SERTRALINE 50 MG TAB PO SCH (09:00)
[2023-01-12] MEDS: FORMOTEROL FUMARATE 20 MCG/2 ML NEBU INHALATION SCH (09:10)
[2023-01-12] MEDS: BUDESONIDE 0.5 MG/2 ML NEBU INHALATION SCH (09:10)
[2023-01-12 11:18] VITALS: BP 143/75; RESP 23
[2023-01-12] MEDS: SODIUM CHLORIDE 0.9% 1,000 ML IV SCH (11:35)
--- NOTE | 2023-01-12 12:02 | P.PN ---
Subjective Progress Note Date: 01/12/23 This is a 27-year-old female patient was currently and her seventh week of gestation, was coming into the hospital because of worsening shortness of breath. The patient was seen in our office and Dr. Escalera and over the patient to the emergency department admitted as the patient was having significant respiratory distress. Noted the patient was in a hospital approximately a week ago. He was admitted for nausea and emesis and diarrhea. She was having excessive GI related issues. During her hospital stay, she was also noted to be short of breath. Based on that, pulmonary consultation was requested. Patient was treated and the patient was discharged home on a course of a prednisone burst taper which was essentially short course. He denies having any signif icant improvement and the patient had to come back to the hospital. She has no history of asthma. She has a family history of asthma. No smoking. No exposure to respiratory irritants. The patient has pets at home, yet she developed an ALLERGIC. She has occasional heartburn. During her last ev aluation, she tested negative for influenza, RSV and Covid 19. A chest x-ray was also negative. 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 Her GI symptoms have essentially subsided. On her blood work, she has a white second of 16.9, normal hemoglobin, d-dimer is at 0.49, X are all within normal limits. Note that his the patient's second . Her first was essentially uneventful. On today's evaluation of 01/12/2023, the patient is feeling is getting more short of breath. He is more anxious and panicky. On examination, she has ongoing bronchospasm wheezing. In fact her breath sounds are quite diminished and if signs and lower lung owens bilaterally. She remains on oxygen. He remains on IV Solu-Medrol. She remains on DuoNeb about treatments [id number]. She remains on a combination Perforomist and Pulmicort twice a day.She is being followed up by ASSISTANT TEACHING PROFESSOR. Objective - Vital Signs Vital signs: Vital Signs Temp 97.8 F 01/12/23 08:37 Pulse 118 H 01/12/23 11:50 Resp 23 01/12/23 11:16 BP 143/75 01/12/23 11:16 Pulse Ox 99 01/12/23 11:16 FiO2 Intake & Output 01/11/23 01/12/23 01/12/23 18:59 06:59 18:59 Intake Total 500 Balance 500 Weight 86.183 kg Intake: Oral 500 Other: # Voids 1 1 # Bowel Movements 0 - Exam The patient is calm and comfortable at rest and she is currently on 2 L of oxygen by nasal cannula Head exam was generally normal. There was no scleral icterus or corneal arcus. Mucous membranes were moist. Neck was supple and without jugular venous distension, thyromegaly, or carotid bruits. Carotids were easily palpable bilaterally. There was no adenopathy. Lungs sounds are diminished bilaterally and the patient is prolongation of the exhalation phase of breathing. The patient diminished breath on bilaterally. The patient also has exhalation wheezing. No stridor. Cardiac exam revealed the PMI to be normally situated and sized. The rhythm was regular and no extrasystoles were noted during several minutes of auscultation. The first and second heart sounds were normal and physiologic splitting of the second heart sound was noted. There were no murmurs, rubs, clicks, or gallops. Abdominal exam revealed normal bowel sounds. The abdomen was soft, non-tender, and without masses, organomegaly, or appreciable enlargement of the abdominal aorta. Examination of the extremities revealed easily palpable radial, femoral and pedal pulses. There was no cyanosis, clubbing or edema. Examination of the skin revealed no evidence of significant rashes, suspicious appearing nevi or other concerning lesions. Neurologically, the patient is awake and alert and the patient does not have any focal neurological deficit. Cranial nerves are essentially intact. - Labs CBC & Chem 7: 01/11/23 09:58 01/11/23 09:58 Labs: Abnormal Lab Results - Last 24 Hours (Table) 01/12/23 Range/Units 08:09 TSH 0.031 L (0.465-4.680) mIU/L Assessment and Plan Plan: Status asthmaticus, the patient was admitted to the hospital with ongoing bronch ospasm wheezing. Breathing is labored and the breath sounds are quite diminished bilaterally. Asthma exacerbation. The patient is acting acutely bronchospastic and wheezy and she was hospitalized and treated and following her discharge her symptoms occurred. She has severe obstructive airway limitation in her spirometry that was done in the office. She is short of breath. She is coming in for further evaluation. Chest x-ray is clear. D-dimer is at low. She does have some mild leukocytosis. Shortness of breath secondary to above Acute hypoxic respiratory failure secondary to above Sinus tachycardia secondary to above, could be partly drug-induced , seventh week of gestation Anxiety History of hyperemesis related to , recovered Plan Patient is having labored breathing and she remains quite short of breath and she seems to be status Continue same treatment Family is quite nervous on her progress. Requested transfer to tertiary care center especially the patient is and there is concern of the help of her fetus in the setting of status asthmaticus. Albuterol neb blotchiness 4 times a day IV Solu-Medrol 60 mg every 6 hours We'll give the patient 2 g of magnesium IV over 20 minutes Oxygen to maintain saturation above 90% ASSISTANT TEACHING PROFESSOR evaluation regarding her We'll try to arrange transferring this patient today another facility due to family concern of failure to respond therapy. Yesterday with
[2023-01-12] MEDS ORDERED: MAGNESIUM SULFATE-D5W PMX 1 GM in DEXTROSE/WATER 1 100ML.BAG IVPB SCH (12:30)
[2023-01-12] MEDS: MAGNESIUM SULFATE-D5W PMX 1 GM in DEXTROSE/WATER 1 100ML.BAG IVPB SCH ×2 (12:45→14:12)
[2023-01-12 12:57] LABS: ABG Base Excess -1.5 mmol/L; ABG HCO3 23 mmol/L (21-25); ABG Oxygen Saturation 86.7 % (94-97); ABG PCO2 38 mmHg (35-45); ABG PH 7.39 (7.35-7.45); ABG TCO2 25 mmol/L (19-24); Allen Test Performed? Yes
[2023-01-12 13:04] LABS: ABG PO2 50 mmHg (83-108)
--- NOTE | 2023-01-12 13:09 | HP ---
HISTORY AND PHYSICAL HISTORY OF PRESENT ILLNESS: This is a 27-year-old white female. She was , about 10 weeks. She was admitted a week ago for severe asthma exacerbation after having severe vomiting at home from , which made her breathing worse. She was stabilized, sent home. She was doing Trelegy 200 at home with albuterol, Singulair, and loratadine. She still had acid reflux medicine. She continued to do well for a few days and then declined again. Now, she is in respiratory failure again. She was breathing only 25% on PFT and Pulmonary office sent her to the hospital for admission. She has gotten much worse since been in the hospital despite Pulmicort, Solu-Medrol magnesium, possibly transfer to ICU to another tertiary center with maternal asthma expert somewhere. REVIEW OF SYSTEMS: A 14-point review of systems otherwise negative. PAST MEDICAL HISTORY: May be allergy, allergic rhinitis. No clear diagnosis of asthma in the past. PHYSICAL EXAMINATION: GENERAL: She is wheezing. She is struggling, so she came here. VITAL SIGNS: Respiratory rate is 25 to 30, pulse is in the low 100s, blood pressure 143/75, and O2 . CARDIOVASCULAR: S1, S2. HEMATOLOGY: Negative for Homans. PSYCH: Fair mood and affect. ASSESSMENT: Status asthmaticus in , unclear etiology. Continue current treatments. Prognosis guarded. May reach her to transfer to ICU or tertiary center. MMODL / IJN: [id number] /
--- NOTE | 2023-01-12 13:45 | CA ---
Transthoracic Echo Report Name: Antoinette Whiteside Age: 27 Gender: F : 1995 Exam Date: 01/12/2023 07:29 Exam Location: [facility] Ht (in): 64 Wt (lb): 190 Ordering Physician: Diego Bhatti MD Attending/Referring Phys: Angiography Technologist Ron Piedra RDCS Procedure CPT: Indications: dyspnea/wheezing Cardiac Hx: Technical Quality: Fair Contrast 1: Total Dose (mL): Contrast 2: Total Dose (mL): MEASUREMENTS (Male / Female) Normal Values 2D ECHO LV Diastolic Diameter PLAX 4.1 cm 4.2 - 5.9 / 3.9 - 5.3 cm LV Systolic Diameter PLAX 2.8 cm LV Fractional Shortening PLAX 31.1 % IVS Diastolic Thickness 1.2 cm 0.6 - 1.0 / 0.6 - 0.9 cm IVS Systolic Thickness 1.4 cm LVPW Diastolic Thickness 1.1 cm 0.6 - 1.0 / 0.6 - 0.9 cm LVPW Systolic Thickness 1.4 cm LV Relative Wall Thickness 0.6 RV Internal Dim ED PLAX 2.6 cm LVOT Diameter 2.2 cm LA Systolic Diameter LX 3.2 cm 3.0 - 4.0 / 2.7 - 3.8 cm LV Diastolic Volume MOD BP 73.6 cm??? 67 - 155 / 56 - 104 cm??? LV Systolic Volume MOD BP 28.5 cm??? 22 - 58 / 19 - 49 cm??? LV Ejection Fraction MOD BP 61.3 % >= 55 % LV Stroke Volume MOD BP 45.1 cm??? LV Diastolic Volume MOD 4C 47.8 cm??? LV Systolic Volume MOD 4C 22.5 cm??? LV Ejection Fraction MOD 4C 52.9 % LV Stroke Volume MOD 4C 25.3 cm??? LV Diastolic Length 4C 6.5 cm LV Systolic Length 4C 5.1 cm LV Diastolic Volume MOD 2C 90.5 cm??? LV Systolic Volume MOD 2C 31.5 cm??? LV Ejection Fraction MOD 2C 65.2 % LV Stroke Volume MOD 2C 59.0 cm??? LV Diastolic Length 2C 8.2 cm LV Systolic Length 2C 5.9 cm Ascending Aorta Diameter 2.6 cm M-MODE Aortic Root Diameter MM 2.5 cm LA Systolic Diameter MM 3.2 cm LA Ao Ratio MM 1.3 MV E Point Septal Separation 0.6 cm AV Cusp Separation MM 1.6 cm DOPPLER AV Peak Velocity 126.7 cm/s AV Peak Gradient 6.4 mmHg MV Peak Velocity 84.7 cm/s MV Peak Gradient 2.9 mmHg MV Mean Velocity 67.3 cm/s MV Mean Gradient 1.9 mmHg MV Velocity Time Integral 21.8 cm MV Deceleration Navarro 384.7 cm/s??? Mitral E Point Velocity 83.5 cm/s Mitral A Point Velocity 71.8 cm/s Mitral E to A Ratio 1.2 MV Deceleration Time 217.1 ms MV E' Velocity 12.4 cm/s Mitral E to MV E' Ratio 6.7 TR Peak Velocity 94.7 cm/s TR Peak Gradient 3.6 mmHg Right Ventricular Systolic Press 8.6 mmHg FINDINGS Left Ventricle Left ventricular ejection fraction is estimated at 60-65 %. Borderline increased left ventricular wall thickness. Normal diastolic function. Right Ventricle Normal right ventricular size. Normal right ventricular global systolic function. Right Atrium Normal right atrial size. Normal right atrial size. Left Atrium Normal left atrial size. Normal left atrial size. Mitral Valve Structurally normal mitral valve. Trace mitral regurgitation. Aortic Valve Trileaflet aortic valve. Tricuspid Valve Trace to mild tricuspid regurgitation. Pulmonic Valve Structurally normal pulmonic valve. Pericardium Normal pericardium. No pericardial effusion. Aorta Normal size aortic root and proximal ascending aorta. CONCLUSIONS Left ventricular ejection fraction 60-65% Trace mitral regurgitation Trace to mild tricuspid regurgitation No pericardial effusion RVSP 9 Previewed by: Dr. To Briones DO (Electronically Signed) Final Date: 12 January 2023 13:44
[2023-01-12] MEDS ORDERED: IPRATROPIUM 0.5 MG/2.5 ML NEBU INHALATION SCH (16:00)
[2023-01-12 16:30] VITALS: PULSE 116
--- NOTE | 2023-01-13 00:04 | DS ---
DISCHARGE SUMMARY A 27-year-old admitted with status asthmaticus and she is around 9 weeks on ultrasound. She was in the hospital. She never had a clear diagnosis of asthma. She was admitted like 2 weeks ago for about a week where she had hematemesis gravidarum, which triggered her asthma to be severe back then. She slowly recovered from that with IV steroids, and albuterol nebulizer. She was sent home on Trelegy 200 mg 1 puff a day and albuterol updrafts throughout the day as well as Singulair 10 mg daily, loratadine 10 mg daily, Pepcid 20 b.i.d. for acid reflux, so the patient went home. She was there for 3 or 4 days and then she slowly got worse again with her breathing, even though her vomiting has stopped. She is back in the hospital. She is not doing well despite Pulmicort nebulizers, Perforomist nebulizer, IV steroids, and albuterol updrafts. We gave magnesium 2 g, which seemed to improve her breathing a little bit and we also just started this afternoon on Atrovent updrafts q.i.d. She had a viable fetus on ultrasound. Her breathing is still shallow and poor. ABG is pending. We will send that with her. She is relatively healthy except for this asthma. She had mild asthma with her 1st . This is her 2nd baby. She had a with her 1st baby. She had limited breathing issues with the 1st baby. This difficulty with breathing all started with hyperemesis, which was real bad for a month, which caused her 1st admission. This 2nd admission is despite not vomiting, her breathing is still very poor. She failed treatment. She would need to see a tertiary asthma specialist down in a Tertiary Clinic somewhere and transfer down there. She is not doing well from a breathing standpoint. She is short of breath now at rest whereas for the past week, she has been short of breath with any movement out of a chair. She can't walk around her house or do any activities and now she is short of breath sitting in bed. She is saturating 99% on 4 L. Pulse is around 118, blood pressure 143/75, respiratory rate 23 to 30. Please see further orders. CURRENT MEDICATIONS: 1. Ventolin 2.5 mg nebulizer p.r.n. 2. Aspirin 81 mg daily. 3. Pulmicort 0.5 mg b.i.d. 4. She takes Benadryl 50 mg at night for sleeping. 5. Pepcid 20 mg b.i.d. for GERD. 6. Perforomist 20 mcg b.i.d. 7. Ipratropium bromide was just ordered 0.5 q.i.d. scheduled. 8. Loratadine 10 mg daily. 9. Montelukast 10 mg daily. 10.As mentioned she has had magnesium 2 g infused. 11.Solu-Medrol 60 IV q.6. 12.Singulair 10 mg daily. 13.Zofran 4 mg every 4 hours p.r.n. for nausea. 14. vitamins. 15.Phenergan 12.5 mg q.6 hours p.r.n. for nausea. 16.Zoloft 50 mg daily for anxiety. Condition is guarded. Prognosis is guarded. Dr. Diego Bhatti is her father, who is a physician and is transferring her down to you. Please call him with any updates please on [phone], Dr. Diego Bhatti, her father. MMODL / IJN: [id number] /
== END 2023-01-12 19:04 | disposition short-term general hospital (02) | DRG 831 ==
LOC: EC 09:30 → 4SSUR 11:51
PROVIDERS: ADMIT Family Medicine; ATTEND Family Medicine
PROC: B246ZZ4 Ultrasonography of Right and Left Heart, Transesophageal (ICD-10-PCS; principal; 2023-01-12)
DX: O99.511 Diseases of the respiratory system complicating pregnancy, first trimester (principal); J96.01 Acute respiratory failure with hypoxia; J45.902 Unspecified asthma with status asthmaticus; Z20.822 Contact with and (suspected) exposure to COVID-19; O99.344 Other mental disorders complicating childbirth; Z3A.08 8 weeks gestation of pregnancy; F41.9 Anxiety disorder, unspecified; O21.0 Mild hyperemesis gravidarum; K21.9 Gastro-esophageal reflux disease without esophagitis; O99.411 Diseases of the circulatory system complicating pregnancy, first trimester; O99.62 Diseases of the digestive system complicating childbirth; R00.0 Tachycardia, unspecified; I08.1 Rheumatic disorders of both mitral and tricuspid valves
CPT/HCPCS: 36415; 36600; 71046; 76801; 80053; 82803; 82805; 83735; 83880; 84145; 84439; 84443; 84481; 85025; 85379; 87635; 93005; 93306; 94640; 94760; 96365; 96366; 96375; 99285

== ENCOUNTER 2023-08-16 09:51 | Inpatient (IN) | payer BC ==
[2023-08-15 12:31] VITALS: BMI 41.5
[2023-08-16] MEDS ORDERED: CITRIC ACID-SODIUM CITRATE 15 ML CUP PO ONE (10:57)
[2023-08-16] MEDS ORDERED: LACTATED RINGERS 1,000 ML IV ONE (10:57)
[2023-08-16] MEDS ORDERED: METHYLERGONOVINE 0.2 MG/ML 1 ML AMP IM PRN (10:57)
[2023-08-16] MEDS ORDERED: TRANEXAMIC 1,000 MG/100ML-NACL 1,000 MG in EMPTY BAG 1 BAG IV PRN (10:57)
[2023-08-16] MEDS ORDERED: CARBOPROST TROMETHAMINE 250 MCG/ML 1 ML AMP IM PRN (10:57)
[2023-08-16] MEDS ORDERED: OXYTOCIN 10 UNIT/ML 1 ML VIAL IM PRN (10:57)
[2023-08-16] MEDS ORDERED: miSOPROStoL 200 MCG TAB PO PRN (10:57)
[2023-08-16] MEDS ORDERED: OXYTOCIN 30 UNITS/500 ML NS 30 UNIT in SALINE 1 500ML.BAG IV SCH ×2 (11:00→13:30)
[2023-08-16 11:10] LABS: Basophils % (A) 0 %; Eosinophils # (A) 0.1 k/uL (0-0.7); Eosinophils % (A) 1 %; HCT 33.9 % (34.0-46.0); HGB 11.3 gm/dL (11.4-16.0); Lymphocytes # (A) 1.8 k/uL (1.0-4.8); Lymphocytes % (A) 18 %; MCH 26.9 pg (25.0-35.0); MCHC 33.4 g/dL (31.0-37.0); MCV 80.4 fL (80.0-100.0); Mean Platelet Volume 14.7; Monocytes # (A) 0.5 k/uL (0-1.0); Monocytes % (A) 6 %; Neutrophils # (A) 7.2 k/uL (1.3-7.7); Neutrophils % (A) 74 %; Platelet Count 133 k/uL (150-450); RBC 4.21 m/uL (3.80-5.40); RDW 14.1 % (11.5-15.5); WBC 9.8 k/uL (3.8-10.6)
[2023-08-16] MEDS: LACTATED RINGERS 1,000 ML IV SCH (11:49)
--- NOTE | 2023-08-16 12:13 | P.HPOB ---
History of Present Illness H&P Date: 08/16/23 Chief Complaint: 39+ weeks, previous section, requesting repeat She is a 27-year-old 2 para 1001 admitted at 39+ weeks as established by 6 week ultrasound. She is admitted for repeat low transverse section having undergone a previous section and requesting repeat. On labor and delivery, all signs reassuring with a category 1 heart tracing. Her was complicated in the early portion by significant episode of idiopathic subglottic stenosis which took some time to diagnose and ultimately required surgical intervention in the [facility]. Since that time, she has had no further complications and has been monitored fairly closely for further exacerbations of her condition. She has had no respiratory issues since the initial episode. Group B strep status is negative. She is otherwise known to be Rh- and received RhoGAM at 28 weeks. Obstetrical history: 2 para 100 with 1 term delivery as noted above. Current statistics are listed in history present illness. EDC of 08/19/2023 was established by 6 week ultrasound. Laboratory workup demonstrates a blood type of O- with a negative antibody screen. Rubella status is immune. The remainder of laboratory workup was within normal limits. Early Glucola as well as second trimester Glucola were normal. Group B strep status is negative. Gynecologic history: Unremarkable with no history of any infections to include STDs. Review of Systems Review of systems is confined to history of present illness. Past Medical History Past Medical History: Asthma, GERD/Reflux Additional Past Medical History / Comment(s): anxiety, asthma, SEASONAL ALLERGIES, HAS NARROW AIRWAY History of Any Multi-Drug Resistant Organisms: None Reported Past Surgical History: Section Additional Past Surgical History / Comment(s): EGD WITH DILATION-WIDENING OF ESOPHAGUS Past Anesthesia/Blood Transfusion Reactions: No Reported Reaction Smoking Status: Never smoker - Past Family History Father Family Medical History: No Reported History Medications and Allergies Home Medications Medication Instructions Recorded Confirmed Type Vit No.180/Iron/Folic 1 tab PO DAILY 12/26/21 08/15/23 History [ Plus Vitamin-Mineral] Albuterol Sulfate [Albuterol 2 puff INHALATION RT-Q4H PRN 12/31/22 08/15/23 Hi story Sulfate Hfa] Loratadine 10 mg PO DAILY 12/31/22 08/15/23 History Montelukast Sodium [Singulair] 10 mg PO DAILY 12/31/22 08/15/23 History Ondansetron [Zofran] 4 mg PO Q4H PRN #120 tab 01/03/23 08/15/23 Rx diphenhydrAMINE [Benadryl] 50 mg PO HS PRN cap 01/03/23 08/15/23 Rx Albuterol Nebulized [Ventolin 2.5 mg INHALATION RT-QID 01/11/23 08/15/23 History Nebulized] Famotidine [Pepcid] 20 mg PO HS 08/15/23 08/15/23 History Omeprazole 20 mg PO DAILY 08/15/23 08/15/23 History Allergies Allergy/AdvReac Type Severity Reaction Status Date / Time No Known Allergies Allergy Verified 08/15/23 12:22 Exam In general, this is a well-developed, well-nourished white female in no acute distress. Her heart has a regular rhythm and rate without murmur. Her lungs clear to auscultation bilaterally in all owens. Her abdomen is nondistended, has normal active bowel sounds, soft, nontender, and without any palpable masses aside from uterine fundus. Her extremities are without any cyanosis, clubbing, or significant edema and are nontender to palpation bilaterally. Digital cervical examination is deferred. Results Result Diagrams: 08/16/23 10:55 Abnormal Lab Results - Last 24 Hours (Table) 08/16/23 Range/Units 10:55 Hgb 11.3 L (11.4-16.0) gm/dL Hct 33.9 L (34.0-46.0) % Plt Count 133 L (150-450) k/uL Assessment and Plan (1) Previous section Current Visit: Yes Status: Acute Code(s): Z98.891 - HISTORY OF UTERINE SCAR FROM PREVIOUS SURGERY SNOMED Code(s): 922630163 (2) Term Current Visit: Yes Status: Acute Code(s): Z34.90 - ENCNTR FOR SUPRVSN OF NORMAL , UNSP, UNSP TRIMESTER SNOMED Code(s): 20640923 Plan: The patient is admitted for repeat low transverse section. The risks and complications of been thoroughly discussed and she is understood and agreed to proceed.
[2023-08-16] MEDS ORDERED: KETOROLAC 15 MG/ML 1 ML VIAL ONE (12:16)
[2023-08-16] MEDS ORDERED: MORPHINE SULFATE (PF) 0.3 MG/0.3 ML SYR ONE (12:16)
[2023-08-16] MEDS ORDERED: PHENYLEPHRINE 10 MG/ML 5 ML VIAL ONE (12:16)
[2023-08-16] MEDS ORDERED: OXYTOCIN 30 UNITS/500 ML NS BAG IV ONE (12:16)
[2023-08-16] MEDS ORDERED: NALOXONE 0.4 MG/ML 1 ML VIAL IV PRN (13:17)
[2023-08-16] MEDS ORDERED: ONDANSETRON 4 MG/2 ML VIAL IVP PRN (13:17)
[2023-08-16] MEDS ORDERED: diphenhydrAMINE 25 MG CAP PO PRN (13:17)
[2023-08-16] MEDS ORDERED: diphenhydrAMINE 50 MG/ML 1 ML VIAL IVP PRN ×2 (13:17)
[2023-08-16] MEDS ORDERED: ZOLPIDEM 5 MG TAB PO PRN (13:17)
[2023-08-16] MEDS ORDERED: LANOLIN CREAM 5 GM TUBE TOPICAL PRN (13:17)
[2023-08-16] MEDS ORDERED: SIMETHICONE 80 MG CHEWABLE PO PRN (13:17)
[2023-08-16 13:26] VITALS: RESP 16
--- NOTE | 2023-08-16 13:27 | P.OP ---
Date of Procedure: 08/16/23 Preoperative Diagnosis: 1. 39+ weeks, previous section #2. Rh- Postoperative Diagnosis: Same Procedure(s) Performed: #1. Repeat low transverse section Anesthesia: spinal Surgeon: Duke Alexander Bisque Tile Burner #1: Lorie Mtz Estimated Blood Loss (ml): 650 IV fluids (ml): 1,000 Urine output (ml): 500 Pathology: none sent Condition: stable Disposition: floor Operative Findings: The patient was taken the operating room where she was delivered of a viable 7 lbs. 3 oz. baby girl with Apgars of 9 at 1 minute and 9 at 5 minutes in the occiput anterior position. The placenta was delivered manually, intact, and grossly normal with a grossly normal three-vessel cord. The uterus, tubes, and ovaries were entirely normal to inspection. There was a moderate amount of scarring at the level of the fascia and rectus muscles though there was very little scarring intra-abdominally. Description of Procedure: The patient was prepped and draped in usual fashion after spinal anesthesia was administered by the anesthesiologist. A Pfannenstiel incision was made through pre-existing scar and extended into the abdominal cavity without difficulty. There was a moderate amount of scarring at the level of the fascia and rectus muscles which was managed without difficulty. The bladder peritoneum was noted to be significantly distal to the intended site of incision was left intact. A 2 cm incision was made in the transverse plane of the lower uterine segment to enter the uterus at which time clear fluid was noted. The incision was extended in both directions using the bandage scissors. The head was delivered up and through the incision where the nose and mouth were thoroughly suctioned. Remainder of the was delivered onto the field where the cord was doubly clamped, cut, and the infant passed resuscitative measures with weight and Apgars as noted above. cord blood was collected per protocol. A segment of cord was doubly clamped, cut, and set aside should cord gases become necessary. The placenta was delivered manually and intact as noted above. The uterus was exteriorized and the interior cavity uterus swept of any remaining placental or membranous fragments. The margins of the uterine incision were grasped with Loredo clamps and the incision closed in 2 layers. The first layer was a running locking stitch of 0 chromic catgut from margin to margin followed by a running imbricating layer of 0 chromic catgut from margin to margin. Hemostasis appeared to be excellent. The posterior cul-de-sac was suctioned with a guard and the uterine and ovarian findings were normal as noted above. The uterus was replaced within the abdominal cavity and the gutters were swept of any remaining blood, fluid, or clot. Examination of the uterine incision demonstrated excellent hemostasis at any smaller points of bleeding were made hemostatic with Bovie. Once hemostasis was complete, the parietal peritoneum was loosely reapproximated in the layer of muscles made hemostatic with the Bovie. The fascia was closed with 2 running stitches of 0 Vicryl proceeding from the lateral margins to the midpoint. Subcutaneous tissues were irrigated, made hemostatic with the Bovie, and reapproximated with a running stitch of 0 plain catgut. The skin was reapproximated with a running subcuticular stitch of 4-0 Vicryl from margin to margin followed by half-inch Steri-Strips placed with Mastisol. Estimated blood loss for the case was approximately 650 mL. There were no complications. All sponge, instrument, and needle counts were correct. The patient tolerated the procedure well and proceeded to the recovery room in stable condition. Both mother and are resting comfortably in recovery.
[2023-08-16] MEDS: diphenhydrAMINE 50 MG CAP PO PRN (18:56)
[2023-08-16] MEDS: ACETAMINOPHEN TAB 500 MG TAB PO SCH (18:56)
[2023-08-16] MEDS: METOCLOPRAMIDE 5 MG/ML 2 ML VIAL IVP PRN (19:42)
[2023-08-16] MEDS: KETOROLAC 15 MG/ML 1 ML VIAL IVP PRN (19:47)
[2023-08-16] MEDS: IBUPROFEN 600 MG TAB PO SCH (19:52)
[2023-08-16] MEDS: SENNOSIDES-DOCUSATE SODIUM 1 EACH TAB PO SCH (22:00)
[2023-08-17] MEDS: LACTATED RINGERS 1,000 ML IV SCH ×4 (00:32→11:35)
[2023-08-17] MEDS: ACETAMINOPHEN TAB 500 MG TAB PO SCH ×4 (00:38→16:56)
[2023-08-17] MEDS: METOCLOPRAMIDE 5 MG/ML 2 ML VIAL IVP PRN (01:59)
[2023-08-17] MEDS ORDERED: Rhogam IMMUNE GLOBULIN 1,500 UNIT/1 ML IM ONE (02:01)
[2023-08-17 06:46] LABS: Basophils % (A) 0 %; Eosinophils % (A) 0 %; HCT 34.3 % (34.0-46.0); HGB 11.2 gm/dL (11.4-16.0); Lymphocytes # (A) 1.4 k/uL (1.0-4.8); Lymphocytes % (A) 13 %; MCH 26.3 pg (25.0-35.0); MCHC 32.7 g/dL (31.0-37.0); MCV 80.4 fL (80.0-100.0); Mean Platelet Volume 13.6; Monocytes # (A) 0.5 k/uL (0-1.0); Monocytes % (A) 5 %; Neutrophils # (A) 8.7 k/uL (1.3-7.7); Neutrophils % (A) 81 %; Platelet Count 116 k/uL (150-450); RBC 4.27 m/uL (3.80-5.40); RDW 14.1 % (11.5-15.5); WBC 10.8 k/uL (3.8-10.6)
[2023-08-17] MEDS: KETOROLAC 15 MG/ML 1 ML VIAL IVP PRN ×2 (08:32→14:41)
[2023-08-17] MEDS: SENNOSIDES-DOCUSATE SODIUM 1 EACH TAB PO SCH ×2 (08:32→20:19)
--- NOTE | 2023-08-17 08:38 | P.PNOBGPC ---
Subjective - Subjective Patient reports: Reports appetite normal, Reports voiding normally, Reports pain well controlled, Reports ambulating normally : doing well, nursing well Objective - Vital Signs Latest vital signs: Vital Signs Temp Pulse Resp BP Pulse Ox 08/17/23 04:00 97.7 F 86 16 101/62 08/17/23 00:00 98.1 F 86 16 126/71 08/16/23 20:00 98.5 F 75 16 113/71 99 08/16/23 15:19 68 16 102/57 100 08/16/23 14:49 75 16 123/62 100 08/16/23 14:19 75 16 116/71 100 08/16/23 14:04 68 16 123/65 100 08/16/23 13:49 80 16 123/62 99 08/16/23 13:34 77 16 125/62 99 08/16/23 13:15 96.4 F L 75 16 125/63 99 08/16/23 10:25 98.3 F 81 16 124/75 99 Intake and Output 08/16/23 08/17/23 08/17/23 22:59 06:59 14:59 Intake Total 300 Output Total 650 550 Balance -350 -550 Intake: Oral 300 Output: Urine 500 550 Output, Quantitative 150 Blood Loss - Exam Extremities: Present: normal Abdomen: Present: normal appearance, soft. Absent: distention, tenderness Incision: Present: normal, dry, intact Uterus: Present: normal, firm (The uterine fundus is tonic and appropriate tender below the umbilicus.) - Labs Labs: Abnormal Lab Results - Last 24 Hours (Table) 08/16/23 08/17/23 Range/Units 10:55 06:07 WBC 10.8 H (3.8-10.6) k/uL Hgb 11.3 L 11.2 L (11.4-16.0) gm/dL Hct 33.9 L (34.0-46.0) % Plt Count 133 L 116 L (150-450) k/uL Neutrophils # 8.7 H (1.3-7.7) k/uL Assessment and Plan (1) Previous section Current Visit: Yes Status: Acute Code(s): Z98.891 - HISTORY OF UTERINE SCAR FROM PREVIOUS SURGERY SNOMED Code(s): 513991888 (2) Term Current Visit: Yes Status: Acute Code(s): Z34.90 - ENCNTR FOR SUPRVSN OF NORMAL , UNSP, UNSP TRIMESTER SNOMED Code(s): 17398427 (3) S/P section Current Visit: No Status: Acute Code(s): Z98.891 - HISTORY OF UTERINE SCAR FROM PREVIOUS SURGERY SNOMED Code(s): 433623269 Plan: Continue routine and postoperative care. The patient did have some nausea and vomiting yesterday which seems to have resolved as far today. I have encouraged her to inability hallways routinely. I would anticipate discharge home tomorrow pending no complications.
[2023-08-17] MEDS: IBUPROFEN 600 MG TAB PO SCH ×3 (09:15→20:19)
--- NOTE | 2023-08-17 11:19 | P.PN ---
Progress Note - Text 08/17/23 639am 27-year-old female status post with spinal Duramorph. Patient seen and evaluated for postop pain control, patient has a VAS of 3 with complaints of nausea vomiting and pruritus during the night. Patient is feeling better this morning with no nausea vomiting and persistent pruritus which should subside soon
[2023-08-18] MEDS: ACETAMINOPHEN TAB 500 MG TAB PO SCH ×3 (00:40→12:07)
[2023-08-18] MEDS: diphenhydrAMINE 50 MG CAP PO PRN (00:40)
[2023-08-18 02:09] VITALS: TEMP 98.1
[2023-08-18] MEDS: IBUPROFEN 600 MG TAB PO SCH ×2 (04:14→09:52)
--- NOTE | 2023-08-18 09:47 | P.DS ---
Providers Date of admission: 08/16/23 09:51 Expected date of discharge: 08/18/23 Attending physician: Duke Alexander Primary care physician: Stated None - Discharge Diagnosis(es) (1) Previous section Current Visit: Yes Status: Acute (2) Rh negative status during Current Visit: Yes Status: Acute (3) Term Current Visit: Yes Status: Acute Hospital Course: This is a 27-year-old 2 now para 2 woman who is admitted at 39 weeks gestation for planned repeat low transverse section. 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 The remainder of the was uncomplicated. Following admission she went to the operating room where she underwent an unremarkable repeat low transverse section. Findings at the time of surgery were significant for a viable female infant with Apgars of 9 at 1 minute and 9 at 5 minutes weighing 7 lbs. 3 oz. There was some rectus muscle and fascial scarring noted. Please see the operative report for details. The patient's postoperative course was unremarkable. By postoperative day #1 she was ambulating and voiding without difficulty. Her lochia was moderate. Her postoperative laboratory data was reassuring. By postoperative day #2 she continued to do well. Her pain was well-controlled with oral pain medications. She is tolerating a general diet and her lochia was significantly decreased. She was therefore discharged home with routine instructions for postoperative care and follow-up Patient Condition at Discharge: Good Plan - Discharge Summary Discharge Rx Participant: Yes New Discharge Prescriptions: New Acetaminophen Tab [Tylenol] 1,000 mg PO Q6H tab Ibuprofen [Motrin] 600 mg PO Q6H PRN #30 tab PRN Reason: Pain No Action Vit No.180/Iron/Folic [ Plus Vitamin-Mineral] 1 tab PO DAILY Montelukast Sodium [Singulair] 10 mg PO DAILY Albuterol Sulfate [Albuterol Sulfate Hfa] 2 puff INHALATION RT-Q4H PRN PRN Reason: Shortness Of Breath Famotidine [Pepcid] 20 mg PO HS Omeprazole 20 mg PO DAILY Loratadine 10 mg PO DAILY diphenhydrAMINE [Benadryl] 50 mg PO HS PRN cap PRN Reason: Insomnia Ondansetron [Zofran] 4 mg PO Q4H PRN #120 tab PRN Reason: Nausea And Vomiting Albuterol Nebulized [Ventolin Nebulized] 2.5 mg INHALATION RT-QID Discharge Medication List Vit No.180/Iron/Folic [ Plus Vitamin-Mineral] 1 tab PO DAILY 0 12/26/21 [History] Albuterol Sulfate [Albuterol Sulfate Hfa] 2 puff INHALATION RT-Q4H PRN 12/31/22 [History] Loratadine 10 mg PO DAILY 12/31/22 [History] Montelukast Sodium [Singulair] 10 mg PO DAILY 12/31/22 [History] Ondansetron [Zofran] 4 mg PO Q4H PRN #120 tab 01/03/23 [Rx] diphenhydrAMINE [Benadryl] 50 mg PO HS PRN cap 01/03/23 [Rx] Albuterol Nebulized [Ventolin Nebulized] 2.5 mg INHALATION RT-QID 01/11/23 [History] Famotidine [Pepcid] 20 mg PO HS 08/15/23 [History] Omeprazole 20 mg PO DAILY 08/15/23 [History] Acetaminophen Tab [Tylenol] 1,000 mg PO Q6H tab 08/18/23 [Rx] Ibuprofen [Motrin] 600 mg PO Q6H PRN #30 tab 08/18/23 [Rx] Follow up Appointment(s)/Referral(s): Duke Alexander MD [STAFF PHYSICIAN] - 2 Weeks Activity/Diet/Wound Care/Special Instructions: Follow-up in 2 weeks after surgery in the office. Call the office with any concerning signs or symptoms including fever greater than 101, severe abdominal pain, heavy vaginal bleeding, signs of wound infection, increased swelling or redness of the lower extremities, signs of depression. No driving for 2 weeks after surgery. No heavy lifting or vigorous activity until reevaluated in the office. No intercourse for 6 weeks after delivery. Discharge Disposition: HOME SELF-CARE
[2023-08-18] MEDS: SENNOSIDES-DOCUSATE SODIUM 1 EACH TAB PO SCH (11:25)
[2023-08-18 11:37] VITALS: BP 131/79; PULSE 76
[2023-08-18] MEDS: LACTATED RINGERS 1,000 ML IV SCH (12:07)
== END 2023-08-18 12:00 | disposition home or self-care (01) | DRG 788 ==
LOC: 4FBP 09:51
PROVIDERS: ADMIT Obstetrics & Gynecology; ATTEND Obstetrics & Gynecology
PROC: 10D00Z1 Extraction of Products of Conception, Low, Open Approach (ICD-10-PCS; principal; 2023-08-16 12:00)
DX: O34.211 Maternal care for low transverse scar from previous cesarean delivery (principal); J45.909 Unspecified asthma, uncomplicated; L29.9 Pruritus, unspecified; O99.344 Other mental disorders complicating childbirth; O26.893 Other specified pregnancy related conditions, third trimester; O99.73 Diseases of the skin and subcutaneous tissue complicating the puerperium; O99.52 Diseases of the respiratory system complicating childbirth; Z37.0 Single live birth; Z3A.39 39 weeks gestation of pregnancy; Z67.91 Unspecified blood type, Rh negative; Z79.899 Other long term (current) drug therapy; Z87.19 Personal history of other diseases of the digestive system
CPT/HCPCS: 85025; 85461; 86850; 86900; 86901

== ENCOUNTER 2023-08-28 10:03 | Emergency (ER) | payer BC ==
[2023-08-28 10:35] VITALS: RESP 16; TEMP 98.9
--- NOTE | 2023-08-28 10:39 | ED ---
Recheck HPI - General Chief Complaint: Recheck/Abnormal Lab/Rx Stated Complaint: post C section-headache Time Seen by Provider: 08/28/23 10:37 Source: patient, RN notes reviewed Mode of arrival: ambulatory Limitations: no limitations - History of Present Illness Initial Comments: This a 27-year-old female presents emergency Department chief complaint of headache 12 days. Patient states started after her spinalperformed secondary to surgery infection. Patient had no fevers or chills. Patient states that the headache is worse when she sits up and better when she lays down. She has tried caffeine tried multiple [id number] medications no relief patient was sent in for blood patch. - Related Data Home Medications Medication Instructions Recorded Confirmed Vit No.180/Iron/Folic 1 tab PO DAILY 12/26/21 08/15/23 [ Plus Vitamin-Mineral] Albuterol Sulfate [Albuterol 2 puff INHALATION RT-Q4H PRN 12/31/22 08/15/23 Sulfate Hfa] Loratadine 10 mg PO DAILY 12/31/22 08/15/23 Montelukast Sodium [Singulair] 10 mg PO DAILY 12/31/22 08/15/23 Albuterol Nebulized [Ventolin 2.5 mg INHALATION RT-QID 01/11/23 08/15/23 Nebulized] Famotidine [Pepcid] 20 mg PO HS 08/15/23 08/15/23 Omeprazole 20 mg PO DAILY 08/15/23 08/15/23 Previous Rx's Medication Instructions Recorded Ondansetron [Zofran] 4 mg PO Q4H PRN #120 tab 01/03/23 diphenhydrAMINE [Benadryl] 50 mg PO HS PRN cap 01/03/23 Acetaminophen Tab [Tylenol] 1,000 mg PO Q6H tab 08/18/23 Ibuprofen [Motrin] 600 mg PO Q6H PRN #30 tab 08/18/23 Allergies Allergy/AdvReac Type Severity Reaction Status Date / Time No Known Allergies Allergy Verified 08/28/23 10:12 Review of Systems ROS Statement: Those systems with pertinent positive or pertinent negative responses have been documented in the HPI. ROS Other: All systems not noted in ROS Statement are negative. Past Medical History Past Medical History: Asthma, GERD/Reflux Additional Past Medical History / Comment(s): anxiety, asthma, SEASONAL ALLERGIES, HAS NARROW AIRWAY History of Any Multi-Drug Resistant Organisms: None Reported Past Surgical History: Section Additional Past Surgical History / Comment(s): EGD WITH DILATION-WIDENING OF ESOPHAGUS Past Anesthesia/Blood Transfusion Reactions: No Reported Reaction Past Psychological History: No Psychological Hx Reported Smoking Status: Never smoker - Past Family History Father Family Medical History: No Reported History General Exam - General Exam Comments Initial Comments: Visual Physical Exam Vital signs reviewed General: Well-appearing, nontoxic, no acute distress. Head: Normocephalic, atraumatic Eyes: PERRLA, EOMI ENT: Airway patent Chest: Nonlabored breathing Skin: No visual rash, normal skin tone Neuro: Alert and oriented 3 Musculoskeletal: No gross abnormalities Limitations: no limitations General appearance: alert, in no apparent distress Head exam: Present: atraumatic, normocephalic, normal inspection Eye exam: Present: normal appearance, PERRL, EOMI. Absent: scleral icterus, conjunctival injection, periorbital swelling ENT exam: Present: normal exam, normal oropharynx, mucous membranes moist Neck exam: Present: normal inspection, full ROM. Absent: tenderness, meningismus, lymphadenopathy Respiratory exam: Present: normal lung sounds bilaterally. Absent: respiratory distress, wheezes, rales, rhonchi, stridor Cardiovascular Exam: Present: regular rate, normal rhythm. Absent: bradycardia, tachycardia, irregular rhythm, normal heart sounds, systolic murmur, diastolic murmur, clicks GI/Abdominal exam: Present: soft, normal bowel sounds. Absent: distended, tenderness, guarding, rebound, rigid Neurological exam: Present: alert, oriented X3, CN II-XII intact, reflexes normal. Absent: motor sensory deficit Course Vital Signs 08/28/23 08/28/23 10:12 14:17 Temperature 98.9 F Pulse Rate 75 62 Respiratory 16 16 Rate Blood Pressure 162/108 145/86 O2 Sat by Pulse 99 100 Oximetry Medical Decision Making - Medical Decision Making I performed a quick note portion of the chart signed Elliot Braga PA-C Was pt. sent in by a medical professional or institution ([facility], TOOTH CUTTER, urgent care, hospital, or fci...) When possible be specific @ -[facility] Did you speak to anyone other than the patient for history (EMS, parent, family, police, friend...)? What history was obtained from this source @ -No Did you review nursing and triage notes (agree or disagree)? Why? @ -I reviewed and agree with nursing and triage notes Were old charts reviewed (outside hosp., previous admission, EMS record, old EKG, old radiological studies, urgent care reports/EKG's, fci records)? Report findings @ -Reviewed recent hospitalization records Differential Diagnosis (chest pain, altered mental status, abdominal pain women, abdominal pain men, vaginal bleeding, weakness, fever, dyspnea, syncope, headache, dizziness, GI bleed, back pain, seizure, CVA, palpatations, mental health, musculoskeletal)? @ -Migraine, spinal headache, tension headache EKG interpreted by me (3pts min.). @ -None X-rays interpreted by me (1pt min.). @ -None done CT interpreted by me (1pt min.). @ -None done U/S interpreted by me (1pt. min.). @ -None done What testing was considered but not performed or refused? (CT, X-rays, U/S, labs)? Why? @ -None What meds were considered but not given or refused? Why? @ -None Did you discuss the management of the patient with other professionals (professionals i.e. , PA, TOOTH CUTTER, lab, RT, psych nurse, oncology social worker, canal driver, teacher, tactical/mobile watch officer, pillowcase cleaner)? Give summary @ -Anesthesia for blood patch Was smoking cessation discussed for >3mins.? @ -No Was critical care preformed (if so, how long)? @ -No Were there social determinants of health that impacted care today? How? (Homelessness, low income, unemployed, alcoholism, drug addiction, transportation, low edu. Level, literacy, decrease access to med. care, correction, rehab)? @ -No Was there de-escalation of care discussed even if they declined (Discuss DNR or withdrawal of care, Hospice)? DNR status @ -No What co-morbidities impacted this encounter? (DM, HTN, Smoking, COPD, CAD, Cancer, CVA, ARF, Chemo, Hep., AIDS, mental health diagnosis, sleep apnea, morbid obesity)? @ -None Was patient admitted / discharged? Hospital course, mention meds given and route, prescriptions, significant lab abnormalities, going to OR and other pertinent info. @ -Discharge patient blood pressure performed by anesthesia. She states she does feel improved. She was advised to go home increase her fluid intake, drinking caffeine return for any worsening changes symptoms. Undiagnosed new problem with uncertain prognosis? @ -No Drug Therapy requiring intensive monitoring for toxicity (Heparin, Nitro, Insulin, Cardizem)? @ -No Were any procedures done? @ -No Diagnosis/symptom? @ -Spinal headache Acute, or Chronic, or Acute on Chronic? @ -Acute Uncomplicated (without systemic symptoms) or Complicated (systemic symptoms)? @ -Uncomplicated Side effects of treatment? @ -No Exacerbation, Progression, or Severe Exacerbation? @ -No Poses a threat to life or bodily function? How? (Chest pain, [place], [place], pneumonia, PE, COPD, DKA, ARF, appy, cholecystitis, CVA, Diverticulitis, Homicidal, Suicidal, threat to staff... and all critical care pts) @ -No Disposition Clinical Impression: Spinal headache Disposition: HOME SELF-CARE Condition: Stable Instructions (If sedation given, give patient instructions): Epidural Blood Patch (DC) Additional Instructions: Please return to the Emergency Department if symptoms worsen or any other concerns. Is patient prescribed a controlled substance at d/c from ED?: No Referrals: Diego Bhatti MD [Primary Care Provider] - 1-2 days Time of Disposition: 15:12
[2023-08-28 14:29] VITALS: BP 145/86; PULSE 62
--- NOTE | 2023-08-28 15:28 | P.PCN ---
Date of Procedure: 08/28/23 Description of Procedure: Procedure= lumbar epidural blood patch. Preoperative diagnosis= postdural puncture headache. Postoperative diagnoses= post dural puncture headache. Indication for the procedure= patient developed headache after spinal headache persists in spite of conservative treatment, there is no focal neurological deficit, no fever, no neck stiffness, headache worse with sitting and standing position, and improved with lying supine, for this reason patient is a good candidate for epidural blood patch. anesthesia= local infiltration with lidocaine 1% 3 mL. Complications= none. Description of the procedure= patient identified risks and benefits of the procedure explained to the patient and patient agreed with proceeding, vital signs monitored during the procedure and IV sedation given to decrease anxiety, Back lumbar area prepped with chlorhexidine 3 times, then drape applied the loc al infiltration of the skin and subcutaneous tissue with lidocaine 1% 3 mL at L5-S1 interlaminar space then 20 -gauge Tuohy needle advanced slowly at L5-S1 interlaminar space, There was positive loss of resistance , no heme no paresthesia no cerebrospinal fluid, then after that 20 ML of the blood taken from the patient under strict sterile technique, and after the antecubital area prepped with a chlorhexidine 3 times using 20-gauge Angiocath, and under sterile technique the 10 ML of the block taken from the patient injected in the epidural space after negative aspiration for heme or CSF and there was no paresthesia then the needle removed intact the skin cleaned and the , bandage applied and patient discharged home in stable condition after discharge criteria met, and patient will follow up with the clinic in 2-4 weeks
== END 2023-08-28 15:33 | disposition home or self-care (01) ==
LOC: EC 10:03
DX: R51.9 Headache, unspecified (principal); J45.909 Unspecified asthma, uncomplicated; K21.9 Gastro-esophageal reflux disease without esophagitis; Z79.899 Other long term (current) drug therapy
CPT/HCPCS: 62273; 99284